=== PATIENT | female | born 1950 | race Caucasian/White ===

== ENCOUNTER 2018-01-24 18:43 | Observation (INO) | payer MEDICARE, OTHER, SELFPAY ==
[2018-01-24] VITALS (10 sets, daily range): BP systolic 111–152; BP diastolic 57–85; PULSE 66–87; RESP 12–19; TEMP 36.4–36.7; O2SAT 96–100; BMI 25.7
--- NOTE | 2018-01-24 18:57 | EKG12_ITS ---
Test Reason : REPEAT Blood Pressure : / mmHG Vent. Rate : 073 BPM Atrial Rate : 073 BPM P-R Int : 180 ms QRS Dur : 084 ms QT Int : 388 ms P-R-T Axes : 062 -14 025 degrees QTc Int : 427 ms Normal sinus rhythm Normal ECG Confirmed by CHIP CRAWFORD MD ([id number]), editor index PETER DURÁN ([id number] on 01/28/2018 1:24:45 PM Referred By: JER Confirmed By:CHIP CRAWFORD MD
--- NOTE | 2018-01-24 19:00 | RAD_ITS ---
STUDY: X-RAY CHEST REASON FOR EXAM: Female, 67 years old. Chest pain TECHNIQUE: Single AP portable view of the chest. COMPARISON: None. FINDINGS: administrative professional leads are present. There is a focus of infiltrate or atelectasis of the medial right lower lobe. Several small calcified granulomas of the right lung base.. There is no demonstrated pleural abnormality. Normal size heart. Normal mediastinum and talia. Normal visualized pulmonary arteries. Normal visualized aortic arch and descending thoracic aorta. Normal visualized thoracic spine. Normal visualized ribs, clavicles, and shoulders. There is no demonstrated abnormality of the visualized soft tissue structures of the upper abdomen. RAD/Chest 1 View (Portable) IMPRESSION: Focus of atelectasis and/or infiltrate of the medial right lower lobe. There are several small calcified granulomas of the right lung base. Electronically Signed: Tarun Jiang MD at 19:19 EDT , Service support ,
[2018-01-24] MEDS: Aspirin 81 MG TAB.CHEW 162 MG PO (19:07)
[2018-01-24] MEDS: 0.9% Normal Saline 1,000 ML 150 ML IV (19:08)
[2018-01-24 19:22] LABS: Absolute Lymphocyte Count 3.54 X10^3/ul (0.83-4.51); Absolute Neutrophil Count 3.8 X10^3/uL (2.0-7.7); Basophil# 0.02 X10^3/uL; Basophil% 0.2 % (0-1); Eosinophil# 0.21 X10^3/uL; Eosinophils% 2.6 % (0-5); Hematocrit 44.8 % (37-47); Hemoglobin 15.3 g/dl (12.0-15.0); Lymphocyte # 3.54 X10^3/ul (4.0); Lymphocyte % 43.4 % (19-41); Mean Corp Hgb Conc 34.2 g/gl (32-36); Mean Corpuscular Volume 93.7 fL (81-99); Mean Platelet Vol. 9.3 fl (6.2-12.0); Monocyte# 0.55 X10^3/uL; Monocyte% 6.7 % (0-10); Neutrophil # 3.82 X10^3/uL (2.7-7.7); Neutrophil % 46.9 % (47-70); Platelet Count 248 K/mm3 (150-450); RBC Distribution Width CV 12.7 % (11.6-14.6); RBC Distribution Width SD 42.6 fl (35.1-43.9); Red Blood Count 4.78 M/mm3 (4.2-5.4); White Blood Count 8.2 K/mm3 (4.4-11.0)
[2018-01-24 19:24] LABS: POSITIVE COUNT NO; POSITIVE DIFFERENTIAL NO; POSITIVE MORPHOLOGY NO
[2018-01-24 19:25] LABS: Anion Gap 8 (5-15); BUN 21 mg/dL (7-18); BUN/Creat Ratio 24.5 RATIO (10-20); Calcium,Total 9.2 mg/dL (8.5-10.1); Chloride 105 mmol/L (98-107); Creatinine, Serum 0.86 mg/dL (0.55-1.02); EST Glomerular Filtration Rate 71 mL/min (>60); Est Glom Filt Rate - Afr Amer 85 mL/min (>60); Estimated Creatinine Clearance 53.95 ml/min; Glucose 110 mg/dL (74-106); Potassium 3.6 mmol/L (3.5-5.1); Sodium Level 142 mmol/L (136-145)
--- NOTE | 2018-01-24 19:30 | EKG12_ITS ---
Test Reason : CP Blood Pressure : / mmHG Vent. Rate : 087 BPM Atrial Rate : 087 BPM P-R Int : 168 ms QRS Dur : 082 ms QT Int : 372 ms P-R-T Axes : 063 -05 034 degrees QTc Int : 447 ms Normal sinus rhythm Normal ECG Confirmed by CHIP CRAWFORD MD ([id number]), assistant film editor PETER DURÁN ([id number]) on 01/28/2018 1:24:58 PM Referred By: TERRANCE
--- NOTE | 2018-01-24 19:40 | ED.DCSUM_ITS ---
- ER Visit Summary Date of Service: 01/24/18 Chief Complaint: [Chest pain] History of Present Illness: The patient is a 67 F [presents with chest discomfort that started about 45 minutes prior to coming in. Patient describes a burning sensation in the center of her chest that radiated into both jaws and into her ears. Patient states she has had similar pain in the past that resolved on its own. Patient thought it was related to indigestion so she had taken Tums multiple times. Patient's pain seems to be mostly resolved in her chest currently just has minimal discomfort in her ears. Patient denies any shortness of breath or diaphoresis. Patient denies any nausea or vomiting. Patient does have a family history of heart disease with both her mother and father having heart attacks in their 70s and 80s. Patient is never had a stress test.] Patient denies recent travel or surgery. Physical Examination: [HEENT-PERRLA, EOMI. Cranial nerves II through XII grossly intact. TMs clear. Mucous membranes moist. No adenopathy. Cardiovascular-regular rate and rhythm without murmur or ectopy Lungs-clear to auscultation, chest wall stable without crepitus or subcu emphysema Abdomen-normoactive bowel sounds, soft, nontender, no rebound or rigidity, no peritoneal signs. Extremities-intact ?4, normal range of motion, normal pulses, atraumatic] Test Results: [EKG obtained on arrival shows sinus rhythm with a ventricular rate of 87 bpm with no acute ST segment changes. CBC with differential was normal. Chemistries were normal. Troponin was less than 0.02. Chest x-ray showed questionable medial right lower lobe atelectasis versus infiltrate otherwise nothing acute. Patient was noted to have some granulomas in the right lung.] Emergency Department Course and Treatment: [Patient's pain was mostly resolved in the department therefore she did receive aspirin. Admit for further workup and evaluation of her chest pain] Treatment Plan: [Admit] Disposition: [Admit] Impression: [Chest Pain-rule out acute coronary syndrome] This note was generated with [employer] dictation software. It may contain incorrect words, spelling, and punctuation that were not noted in review of the chart prior to signing ED Disposition - Plan for ED Patient: Chief Complaint: Chest Pain Referrals: Reyes Hsieh Chi, MD [Primary Care Provider] -
--- NOTE | 2018-01-24 20:39 | HP.PCM_ITS ---
Problem List (1) Chest pain Status: Acute (2) Nephrolithiasis Status: Chronic (3) GERD (gastroesophageal reflux disease) Status: Chronic History of Present Illness Date of Admission: 01/24/18 Chief Complaint: Chest pain The patient is a 67 year old F with a past medical history of intermittent GERD , nephrolithiasis and fibroids (status post ZEUS/BSO) who presented to the emergency room at [facility] complaining of substernal chest pain that radiated to her ears bilaterally. She had finished supper about an hour before the pain started. The pain started at rest. She had a similar episode a few years ago but the pain resolved on the way to the emergency room so she did not follow through. She has never had a stress test or cardiac catheterization. She has no history of heart disease and denies a history of hypertension, diabetes mellitus, hyperlipidemia or smoking history. There is a family history of cardiovascular disease in both her parents had myocardial infarctions. She denied any diaphoresis, nausea, shortness of breath, palpitations with the pain. The pain lasted approximately 45 minutes and by the time she arrived at the emergency room was minimal. EKG showed normal sinus rhythm with no significant ST or T-wave changes. Chest x-ray showed no pleural effusions, pulmonary vascular congestion or infiltrates. Troponin was less than 0.02. BUN was increased at 21 and the creatinine was 0.86. He took 8 Tums at home with no significant relief of chest pain. She tells me when she has GERD the pain goes away in approximately 10 minutes with Tums. She is being admitted to a monitored bed on PCU for serial cardiac enzymes and if these are negative stress test in the a.m. Past Medical History Past Medical History (Chronic Problems): Chronic Problems Nephrolithiasis (Chronic) GERD (gastroesophageal reflux disease) (Chronic) Allergies diphenhydramine HCl [From Benadryl] Allergy (Verified 01/24/18 18:47) Rash Home Medications: Ambulatory Orders Medication Instructions Recorded Aspirin [Aspirin, Baby] 162 mg PO DAILY@0800 02/05/14 Multivitamins,Therapeutic 1 tablet PO DAILY 02/05/14 [Multivitamin] [place]-3 Fatty Acids [Fish Oil] 500 mg PO DAILY 01/24/18 Vitamin E 1,000 unit PO DAILY 01/24/18 Surgical History: appendectomy - Incidental appendectomy at the time of hysterectomy., hysterectomy - ZEUS/BSO for uterine fibroids, - - 2 sections 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 Paternal History Items: Heart Disease, Stroke Review of Systems Constitutional: Denies: Chills, Fever, Weight Change Eyes: Denies: Blurred vision, Vision Change HEENT: Denies: Head Aches, Sinus Congestion, Sinus Drainage Cardiovascular: Reports: Chest Pain. Denies: Claudication, Edema, Light Headedness, Orthopnea, Palpitations, Paroxysmal Noc. Dyspnea Respiratory: Reports: Shortness of Breath - Only with the chest pain. Denies: Cough Gastrointestinal: Denies: Abdominal Pain, Diarrhea, Nausea, Vomiting Genitourinary: Denies: Dysuria Gynecological: Denies: Breast symptoms, Vaginal discharge Musculoskeletal: Denies: Arm Pain Skin: Denies: Jaundice, Rash, Wounds Neurological: Denies: Numbness, Tingling, Focal weakness Psychiatric: Denies: Anxiety, Depression, Homicidal Ideations, Suicidal Ideations Endocrine: Denies: Change in Body Habitus, Hx of Thyroiditis Hematologic/ Lymphatic: Denies: Hx of blood clot VTE Information - Inpt Only VTE Present on Admission: No VTE Mechan Device Prophylaxis: None VTE Pharm Prophylaxis ordered?: No Reason prophylaxis not ordered:: Treatment Not Indicated - Patient will likely have a short admission, less than 24 hours, unless stress test is positive tomorrow and will start DVT prophylaxis if she is going to stay in the hospital at that time. Patient Problems: Active and Suspected Problems Chest pain (Acute) - Physical Exam General: Alert, Oriented x3, Cooperative HEENT: Atraumatic, PERRLA, EOMI, Normocephalic Oral: Dry Mucosa Neck: Supple, No JVD, Negative Carotid Bruits, No Nodes, No Nuchal Rigidity, Trachea Midline Lungs: Clear to auscultation, Normal air movement Cardiovascular: Regular rate, Regular Rhythm, Normal S1, Normal S2, No murmurs, No Ectopic Activity, No rub noted, No Gallop Abdomen: Bowel Sounds Present, Soft, Non Tender, Non-Distended, No Hepato- splenomegaly, - - No guarding with palpation Extremities: No clubbing, No cyanosis, No edema, No Calf Tenderness - Negative Homans and Jesse signs, Peripheral Pulses Normal Skin: No rashes, No breakdown Musculoskeletal: No Muscle Wasting Neurological: Cranial nerves II-XII grossly intact, Neuro grossly intact Psych/Mental Status: Normal Affect, Appropriate Vital Signs Temp Pulse Resp BP Pulse Ox 97.6 F L 80 17 111/57 L 96 01/24/18 19:50 01/24/18 20:18 01/24/18 20:18 01/24/18 20:18 01/24/18 20:18 Oxygen Flow Rate (L/min) 2 Oxygen Delivery Method Nasal Cannula Weight: 145 lb 4.554 oz Body Mass Index (BMI) 25.7 Laboratory Tests Past 24 Hrs 01/24/18 01/24/18 18:55 18:55 WBC 8.2 RBC 4.78 Hgb 15.3 H Hct 44.8 MCV 93.7 MCH 32.0 MCHC 34.2 RDW 12.7 RDW Differential 42.6 Plt Count 248 MPV 9.3 Immature Gran % (Auto) 0.200 Neut % (Auto) 46.9 L Lymph % (Auto) 43.4 H [place] % (Auto) 6.7 Eos % (Auto) 2.6 Baso % (Auto) 0.2 Absolute Neuts (auto) 3.8 Absolute Lymphs (auto) 3.54 Total Counted Not Reportable Sodium 142 Potassium 3.6 Chloride 105 Carbon Dioxide 29.0 Anion Gap 8 BUN 21 H Creatinine 0.86 Estim Creat Clear Calc 53.95 Est GFR (MDRD) Af Amer 85 Est GFR (MDRD) Non-Af 71 BUN/Creatinine Ratio 24.5 H Glucose 110 H Calcium 9.2 Troponin I < 0.02 Assessment/Plan Active and Suspected Problems Chest pain (Acute) Impressions 1. Chest pain-patient is a lifelong non-smoker, has no diabetes mellitus, hypertension or hyperlipidemia, does have a significant family history of cardiovascular disease in both her parents and neither 1 of them smoked. EKG without chest pain is normal. Chest x-ray was unremarkable. She is being admitted to a monitored bed on PCU for serial cardiac enzymes. If the cardiac enzymes are negative will proceed with treadmill nuclear stress test in the a.m. 2. GERD - not often now....usually relieved with TUMS within 10-15 minutes 3. Hx of ZEUS/BSO for fibroids 4. Family history of CVD in both parents 5. + FH of breast CA in her mother - encouraged her to get Up to date on MMG's and get a DEXA scan since she had a total hyster prior to menopause Code Visit OBSV E&M: 64679 Initial observation care L3
[2018-01-24 21:41] LABS: AST(SGOT) 55 U/L (15-37); Alanine Aminotransfer ALT/SGPT 78 U/L (13-56); Albumin, Serum 3.9 g/dL (3.2-5.0); Alkaline Phosphatase 142 U/L (45-117); Bilirubin, Direct 0.08 mg/dL (0.00-0.30); Globulin 3.8 g/dL (2.2-4.2); Protein, Total 7.7 g/dL (6.4-8.2)
[2018-01-24] MEDS: Famotidine 20 MG Tablet PO (21:49)
[2018-01-25 03:04] VITALS: PULSE 65
[2018-01-25 03:08] VITALS: BP 107/58; PULSE 64; RESP 16; TEMP 37.1; O2SAT 96
[2018-01-25 03:47] LABS: Hematocrit 39.1 % (37-47); Hemoglobin 13.1 g/dl (12.0-15.0); Mean Corp Hgb Conc 33.5 g/gl (32-36); Mean Corpuscular Hgb 31.6 pg (27.0-32.0); Mean Corpuscular Volume 94.4 fL (81-99); Mean Platelet Vol. 9.3 fl (6.2-12.0); Platelet Count 207 K/mm3 (150-450); RBC Distribution Width CV 12.7 % (11.6-14.6); RBC Distribution Width SD 42.9 fl (35.1-43.9); Red Blood Count 4.14 M/mm3 (4.2-5.4); White Blood Count 6.6 K/mm3 (4.4-11.0)
[2018-01-25 03:48] LABS: Scan Indicated on CBC? Y/N NO
[2018-01-25 03:53] LABS: International Normalized Ratio 0.9; Prothrombin Time (Protime)PT. 12.3 SECONDS (11.7-14.9)
[2018-01-25 04:02] LABS: Anion Gap 6 (5-15); BUN 19 mg/dL (7-18); Calcium,Total 8.8 mg/dL (8.5-10.1); Chloride 110 mmol/L (98-107); Cholesterol 159 mg/dL (200); Creatinine, Serum 0.51 mg/dL (0.55-1.02); EST Glomerular Filtration Rate 127 mL/min (>60); Est Glom Filt Rate - Afr Amer 154 mL/min (>60); Estimated Creatinine Clearance 90.97 ml/min; Glucose 97 mg/dL (74-106); High Density Lipoprotein 42 mg/dL; Potassium 3.9 mmol/L (3.5-5.1); Sodium Level 143 mmol/L (136-145); Triglycerides 168 mg/dL; Very Low Density Lipoprotein 34 mg/dL (5-40)
--- NOTE | 2018-01-25 05:55 | EKG12_ITS ---
Test Reason : MORNING EKG Blood Pressure : / mmHG Vent. Rate : 067 BPM Atrial Rate : 067 BPM P-R Int : 176 ms QRS Dur : 086 ms QT Int : 414 ms P-R-T Axes : 060 -08 002 degrees QTc Int : 437 ms Normal sinus rhythm Normal ECG When compared with ECG of 24-JAN-2018 19:43, MANUAL COMPARISON REQUIRED, DATA IS UNCONFIRMED Confirmed by YVETTE WATKINS, CHIP ([id number]), index editor PETER DURÁN ([id number]) on 01/28/2018 1:55:05 PM Referred By: TUNDE Confirmed By:CHIP CRAWFORD MD
[2018-01-25] MEDS: Aspirin 81 MG TAB.CHEW 162 MG PO (06:03)
[2018-01-25 07:15] VITALS: PULSE 80
--- NOTE | 2018-01-25 09:25 | STRESSREP ---
Stress Test Report Exercise myocardial perfusion stress test. 67-year-old lady with a history of chest pain. Stress protocol: Resting EKG demonstrates normal sinus rhythm with a rate of 71 bpm normal intervals and noted resting blood pressure is 116/80 mmHg. The patient exercised according to the regular Mhoan protocol for a total duration of 4 minutes and 30 seconds. The maximum heart rate attained was 176 bpm which was 113% of the maximum predicted heart rate. The maximum workload attained was 6.3 metastases. At rest there were no ST or T-wave changes noted suggest ischemia at peak exercise upsloping ST changes only were noted with no meet the criteria for ischemia. The resting blood pressure is 116/80 with a peak blood pressure 150/40 mmHg. The patient was terminated due to shortness of breath and fatigue no chest pain was noted. Myocardial perfusion protocol. 11.1 mCi of technetium 99M sestamibi was injected at rest. The patient exercised according to the regular Mohan protocol for total duration of 4 minutes and 30 seconds attaining 113% of maximum predicted heart rate the maximum workload was 6.3 metabolic equivalents. At peak exercise 32.9 mCi of technetium 99m sestamibi was injected stress images were obtained stress and rest images were reconstructed and compared in the short axis vertical long and horizontal long axis. Gated images were also obtained. Perfusion SPECT analysis: Review of the stress images demonstrate normal uptake of tracer noted in all areas of the myocardium. The resting images similarly demonstrate normal uptake of tracer noted in all areas of the myocardium. No areas of reversibility are noted to suggest ischemia and no previous infarct is noted. Gated SPECT analysis. The gated ejection fraction is noted to be 79%. Conclusion: Normal exercise myocardial perfusion stress test at a moderate workload. Preserved ejection fraction. Moderate functional aerobic impairment.
[2018-01-25 09:50] VITALS: BP 116/75; PULSE 75; RESP 18; TEMP 36.4; O2SAT 97
[2018-01-25] MEDS: Vitamin E 400 UNITS Capsule 800 UNITS PO (10:03)
[2018-01-25] MEDS: Multivitamins,Therapeutic Tablet 1 TABLET PO (10:03)
[2018-01-25] MEDS: Famotidine 20 MG Tablet PO (10:03)
[2018-01-25 11:03] VITALS: PULSE 76
--- NOTE | 2018-01-25 12:45 | DCINST_ITS ---
- Discharge Diagnoses Current Active Problems: Current Active and Chronic Problems Chest pain (Acute) Nephrolithiasis (Chronic) GERD (gastroesophageal reflux disease) (Chronic) Reason(s) for Visit for Discharge Instructions: Chest pain You will use the following diet at home:: No restrictions Allergies/Adverse Reactions: Allergies diphenhydramine HCl [From Benadryl] Allergy (Verified 01/24/18 18:47) Rash Medications to take at Discharge Aspirin [Aspirin, Baby] 162 mg PO DAILY@0800 02/05/14 Multivitamins,Therapeutic [Multivitamin] 1 tablet PO DAILY 02/05/14 [place]-3 Fatty Acids [Fish Oil] 1,200 mg PO DAILY 01/24/18 Vitamin E 400 unit PO DAILY 01/24/18 Omeprazole 40 mg PO DAILY #30 capsule. 01/25/18 The following prescriptions were given: Omeprazole 40 mg PO DAILY #30 capsule. Primary Care Physician: Reyes Hsieh Chi, MD [Primary Care Provider] - Please follow up with your Primary Care Physician in: in 5 to 7 days.
--- NOTE | 2018-01-25 12:45 | PCM.DC.SUM ---
Discharge Date and Diagnosis - Problem List Patient Problems: Active and Suspected Problems Chest pain (Acute) Date of Admission: 01/24/18 Date of Discharge: 01/25/18 - Primary Discharge Diagnosis Active and Suspected Problems Chest pain (Acute) - Secondary Discharge Diagnosis Chronic Problems Nephrolithiasis (Chronic) GERD (gastroesophageal reflux disease) (Chronic) Hospital Course and Treatment Imaging Results: 01/25/18 05:55 Nuclear Stress Test - Treadmil [NM] AM (NON MEDS) Diagnostic Data Chest X-Ray 01/24/18 19:00 IMPRESSION: Focus of atelectasis and/or infiltrate of the medial right lower lobe. There are several small calcified granulomas of the right lung base. Electronically Signed: Tarun Jiang MD at 19:19 EDT , Service support , SPECIAL DELIVERY MESSENGER: none. Operations: None Procedures: Stress test Summary of Care Provided: The patient is a 67 year old F with a past medical history of intermittent GERD, nephrolithiasis and fibroids (status post ZEUS/BSO) who presented to the emergency room at [facility] complaining of substernal chest pain that radiated to her ears bilaterally. She had finished supper about an hour before the pain started. The pain started at rest. She had a similar episode a few years ago but the pain resolved on the way to the emergency room so she did not follow through. She has never had a stress test or cardiac catheterization. She has no history of heart disease and denies a history of hypertension, diabetes mellitus, hyperlipidemia or smoking history. There is a family history of cardiovascular disease in both her parents had myocardial infarctions. She denied any diaphoresis, nausea, shortness of breath, palpitations with the pain. The pain lasted approximately 45 minutes and by the time she arrived at the emergency room was minimal. EKG showed normal sinus rhythm with no significant ST or T-wave changes. Chest x-ray showed no pleural effusions, pulmonary vascular congestion or infiltrates. Troponin was less than 0.02. BUN was increased at 21 and the creatinine was 0.86. He took 8 Tums at home with no significant relief of chest pain. She tells me when she has GERD the pain goes away in approximately 10 minutes with Tums. She is being admitted to a monitored bed on PCU for serial cardiac enzymes and if these are negative stress test in the a.m. Patient remained chest pain free during the hospital stay. Serial troponin were negative, underwent stress nuclear scan, which was negative for ischemia. Plan to discharge to home. Add omeprazole 40 mg po qd x 1 month. Follow up with PCP. Discharge Diet: No Restrictions Discharge Activity: Return to Normal Activity Home Medications: Medications to take at Discharge Aspirin [Aspirin, Baby] 162 mg PO DAILY@0800 02/05/14 Multivitamins,Therapeutic [Multivitamin] 1 tablet PO DAILY 02/05/14 [place]-3 Fatty Acids [Fish Oil] 1,200 mg PO DAILY 01/24/18 Vitamin E 400 unit PO DAILY 01/24/18 Omeprazole 40 mg PO DAILY #30 capsule. 01/25/18 Following Prescrptions Were Given to Patient: Omeprazole 40 mg PO DAILY #30 capsule. Primary Care Physician: Reyes Hsieh Chi, MD [Primary Care Provider] - Please follow up with your Primary Care Physician in: in 5 to 7 days. Disposition: Home Patient Condition:: Good Medical Necessity - Tobacco Use Smoking Status: Never smoker Tobacco Use: Non-smoker Meaningful Use Info Meaningful Use Diagnoses (Choose all that apply): None applicable Code Visit OBSV E&M: 45636 Observation care discharge
--- NOTE | 2018-01-25 12:48 | DS.PCM_ITS ---
Discharge Date and Diagnosis - Problem List Patient Problems: Active and Suspected Problems Chest pain (Acute) Date of Admission: 01/24/18 Date of Discharge: 01/25/18 - Primary Discharge Diagnosis Active and Suspected Problems Chest pain (Acute) - Secondary Discharge Diagnosis Chronic Problems Nephrolithiasis (Chronic) GERD (gastroesophageal reflux disease) (Chronic) Hospital Course and Treatment Imaging Results: 01/25/18 05:55 Nuclear Stress Test - Treadmil [NM] AM (NON MEDS) Diagnostic Data Chest X-Ray 01/24/18 19:00 IMPRESSION: Focus of atelectasis and/or infiltrate of the medial right lower lobe. There are several small calcified granulomas of the right lung base. Electronically Signed: Tarun Jiang MD at 19:19 EDT , Service support , LOCK ASSEMBLER: none. Operations: None Procedures: Stress test Summary of Care Provided: The patient is a 67 year old F with a past medical history of intermittent GERD , nephrolithiasis and fibroids (status post ZEUS/BSO) who presented to the emergency room at [facility] complaining of substernal chest pain that radiated to her ears bilaterally. She had finished supper about an hour before the pain started. The pain started at rest. She had a similar episode a few years ago but the pain resolved on the way to the emergency room so she did not follow through. She has never had a stress test or cardiac catheterization. She has no history of heart disease and denies a history of hypertension, diabetes mellitus, hyperlipidemia or smoking history. There is a family history of cardiovascular disease in both her parents had myocardial infarctions. She denied any diaphoresis, nausea, shortness of breath, palpitations with the pain. The pain lasted approximately 45 minutes and by the time she arrived at the emergency room was minimal. EKG showed normal sinus rhythm with no significant ST or T-wave changes. Chest x-ray showed no pleural effusions, pulmonary vascular congestion or infiltrates. Troponin was less than 0.02. BUN was increased at 21 and the creatinine was 0.86. He took 8 Tums at home with no significant relief of chest pain. She tells me when she has GERD the pain goes away in approximately 10 minutes with Tums. She is being admitted to a monitored bed on PCU for serial cardiac enzymes and if these are negative stress test in the a.m. Patient remained chest pain free during the hospital stay. Serial troponin were negative, underwent stress nuclear scan, which was negative for ischemia. Plan to discharge to home. Add omeprazole 40 mg po qd x 1 month. Follow up with PCP. Discharge Diet: No Restrictions Discharge Activity: Return to Normal Activity Home Medications: Medications to take at Discharge Aspirin [Aspirin, Baby] 162 mg PO DAILY@0800 02/05/14 Multivitamins,Therapeutic [Multivitamin] 1 tablet PO DAILY 02/05/14 [place]-3 Fatty Acids [Fish Oil] 1,200 mg PO DAILY 01/24/18 Vitamin E 400 unit PO DAILY 01/24/18 Omeprazole 40 mg PO DAILY #30 capsule. 01/25/18 Following Prescrptions Were Given to Patient: Omeprazole 40 mg PO DAILY #30 capsule. Primary Care Physician: Reyes Hsieh Chi, MD [Primary Care Provider] - Please follow up with your Primary Care Physician in: in 5 to 7 days. Disposition: Home Patient Condition:: Good Medical Necessity - Tobacco Use Smoking Status: Never smoker Tobacco Use: Non-smoker Meaningful Use Info Meaningful Use Diagnoses (Choose all that apply): None applicable Code Visit OBSV E&M: 20134 Observation care discharge
[2018-01-25 13:33] VITALS: O2SAT 91
== END 2018-01-25 12:44 | disposition home or self-care (01) ==
LOC: ED 19:30 → PCU 20:29
PROVIDERS: Admitting Provider Internal Medicine; Emergency Provider Emergency Medicine; Family Provider Family Medicine Geriatric Medicine; PCP Family Medicine Geriatric Medicine; Visit Provider Hospitalist
DX: R07.89 Other chest pain (principal); K21.9 Gastro-esophageal reflux disease without esophagitis; Z87.442 Personal history of urinary calculi; Z82.49 Family history of ischemic heart disease and other diseases of the circulatory system; Z79.82 Long term (current) use of aspirin
CPT/HCPCS: 36415; 71045; 78452; 80048; 80061; 80076; 83735; 84484; 85025; 85027; 85610; 85730; 93005; 93017; 96360; 96361; 99218; 99285; A9500; J7030; A4216; G0378

== ENCOUNTER → 2018-04-24 11:43 | Outpatient (CLI) | payer MEDICARE, OTHER, SELFPAY ==
--- NOTE | 2018-04-24 11:45 | CDU_ITS ---
Reason For Study: Carotid stenosis Rt. Velocities/BP Lt. Velocities/BP Prox CCA 95.6/22.9 cm/sec. Prox CCA 84.4/24.6 cm/sec. Mid CCA 81.5/19.9 cm/sec. Mid CCA 79.2/23.5 cm/sec. Dist CCA 98.5/25.2 cm/sec. Dist CCA 80.9/27.6 cm/sec. Prox ICA 67.4/22.3 cm/sec. Prox ICA 66.8/26.4 cm/sec. Mid ICA 136.0/53.0 cm/sec. Mid ICA 109.0/45.7 cm/sec. Dist ICA 89.8/36.4 cm/sec. Dist ICA 108.0/45.7 cm/sec. Rt. ICA/CCA = 1.5. Lt. ICA/CCA = 1.4. Prox ECA 82.1/12.3 cm/sec. Prox ECA 82.7/14.7 cm/sec. Rt. Vert. 53.4/15.8 cm/sec. Lt. Vert. 69.2/21.7 cm/sec. Right Extracranial There is intimal thickening but no significant atherosclerotic plaque noted in the right common carotid artery. There is intimal thickening but no significant atherosclerotic plaque noted in the right internal carotid artery. There is no significant atherosclerotic plaque noted in the right external carotid artery. Antegrade flow is noted in the right vertebral artery. Left Extracranial There is intimal thickening but no significant atherosclerotic plaque noted in the left common carotid artery. There is intimal thickening but no significant atherosclerotic plaque noted in the left internal carotid artery. There is intimal thickening but no significant atherosclerotic plaque noted in the left external carotid artery. Antegrade flow is noted in the left vertebral artery. Procedure Carotid Duplex [id number]. Exam performed in department. Interpretation Summary Intimal thickening of the right internal carotid with 50-69% stenosis, likely closer to the lower limits of this range. Intimal thickening with <50% stenosis left internal carotid. Normal flow bilateral external carotids Patent and antegrade bilateral vertebrals. Ordering Physician: Dayanna Vásquez Referring Physician: Dayanna Vásquez Performed By: Christine Benavidez RVT
== END ==
PROVIDERS: Family Provider Internal Medicine; PCP Internal Medicine; Visit Provider Internal Medicine
DX: I65.23 Occlusion and stenosis of bilateral carotid arteries (principal)
CPT/HCPCS: 93880

== ENCOUNTER → 2018-05-16 14:15 | Outpatient (CLI) | payer MEDICARE, OTHER, SELFPAY ==
--- NOTE | 2018-05-16 14:18 | BI_ITS ---
MAMMOGRAPHY - BILATERAL SCREENING REASON FOR EXAM: Female, 68 years old. Routine annual screening examination. PERTINENT HISTORY: Mother with breast cancer. Aunt with breast cancer. TECHNIQUE: Digital bilateral breast hugh (3D mammographic acquisition) in the CC and MLO projections. 2-D mediolateral oblique (MLO) and craniocaudad (CC) views of both breasts were obtained. CAD: Full Field Digital Mammography with Computer Added Detection was performed. COMPARISON: Comparison is made with prior examination dated July 11, 2012. FINDINGS: Breast Composition: The breasts are heterogeneously dense, which may obscure small masses. There are no dominant masses or suspicious calcifications. Stable benign-appearing bilateral axillary lymph nodes. Stable calcified nodules in both breasts. No other significant abnormalities are identified. There has been no significant change since the prior study. BI/SCREENING MAMM (CAD), BILAT IMPRESSION: Stable bilateral screening mammogram. Yearly follow-up mammogram recommended. (A) ASSESSMENT CATEGORY: BIRADS Category 2: Benign. A letter regarding these results will be sent to the patient by the facility within 30 days. Approximately 10% of breast cancers are not detected by mammography. A normal mammogram should not delay biopsy of a clinically suspicious abnormality. [id number] Electronically Signed: Marco Bright MD at 15:23 EDT Tel [phone], Service support ,
--- NOTE | 2018-05-16 14:24 | BD_ITS ---
STUDY: DUAL ENERGY X-RAY ABSORPTIOMETRY / DXA REASON FOR EXAM: Female, 68 years old. The patient is postmenopausal. Loss of height. TECHNIQUE: Bone Mineral Density (BMD) measurements of lumbar spine and bilateral hips were obtained. COMPARISON: None. FINDINGS: Lumbar Spine (L1-L4): g/cm2 (1.030) / T-score (-1.2) / Z-score (0.4) Findings are suggestive of osteopenia with a moderate fracture risk. Left Femur Total: g/cm2 (0.870) / T-score (-1.1) / Z-score (0.2) Left Femoral Neck: g/cm2 (0.788) / T-score (-1.8) / Z-score (-0.3) Right Femur Total: g/cm2 (0.925) / T-score (-0.7) / Z-score (0.6) Right Femoral Neck: g/cm2 (0.820) / T-score (-1.6) / Z-score (-0.1) BD/Dexa Bone Density Study IMPRESSION: The patient is considered osteopenic as outlined below according to World Wes Organization (WHO) criteria with a moderate fracture risk. Reference Information: The T-score is the number of standard deviations above or below the standard which is normal for young adults at their peak bone mineral density. The World Health Organization (WHO) interprets the T-scores as follows: Above -1 Normal bone density Between -1 and -2.5 Osteopenia Equal to / or below -2.5 Osteoporosis As a practical clinical guideline, osteopenia may be graded as follows: Mild -1 through -1.5 Moderate -1.6 through -2.0 Severe -2.1 through -2.4 The Z-score is the number of standard deviations above or below age-matched controls. A Z-score of less than -1.5 would be considered abnormal. References: 1. NIH Osteoporosis and Related Bone Diseases http://www.osteo.org 2. International Society for Clinical Densitometry http://www.iscd.org 3. National Osteoporosis Foundation http://www.nof.org Electronically Signed: Marco Bright MD at 15:12 EDT Tel [phone], Service support ,
== END ==
PROVIDERS: Family Provider Family Medicine Geriatric Medicine; PCP Internal Medicine; Visit Provider Internal Medicine
DX: Z12.31 Encounter for screening mammogram for malignant neoplasm of breast (principal); Z78.0 Asymptomatic menopausal state
CPT/HCPCS: 77063; 77067; 77080

== ENCOUNTER → 2019-05-26 12:54 | Outpatient (CLI) | payer MEDICARE, OTHER, SELFPAY ==
--- NOTE | 2019-05-26 12:59 | BI_ITS ---
MAMMOGRAPHY - BILATERAL SCREENING REASON FOR EXAM: Female, 69 years old. Routine annual screening examination. PERTINENT HISTORY: Mother with breast cancer. Aunt with breast cancer. TECHNIQUE: Digital bilateral breast corrie (3D mammographic acquisition) in the CC and MLO projections. 2-D mediolateral oblique (MLO) and craniocaudad (CC) views of both breasts were obtained. CAD: Full Field Digital Mammography with Computer Added Detection was performed. COMPARISON: Comparison is made with prior study dated May 16, 2018 and July 11, 2012. FINDINGS: Breast Composition: The breasts are heterogeneously dense, which may obscure small masses. There are no dominant masses or suspicious calcifications. Stable benign-appearing bilateral axillary lymph nodes. No other significant abnormalities are identified. There has been no significant change since the prior study. BI/SCREEN MAMM (CAD) W/CORRIE BILAT IMPRESSION: Stable bilateral screening mammogram. Yearly follow-up mammogram recommended. (A) ASSESSMENT CATEGORY: BIRADS Category 2: Benign. A letter regarding these results will be sent to the patient by the facility within 30 days. Approximately 10% of breast cancers are not detected by mammography. A normal mammogram should not delay biopsy of a clinically suspicious abnormality. [id number] Electronically Signed: Marco Bright, at 14:19 EDT , Service support ,
== END ==
PROVIDERS: Family Provider Internal Medicine; PCP Internal Medicine; Visit Provider Internal Medicine
DX: Z12.31 Encounter for screening mammogram for malignant neoplasm of breast (principal)
CPT/HCPCS: 77063; 77067

== ENCOUNTER → 2019-06-05 09:06 | Outpatient (CLI) | payer MEDICARE, OTHER, SELFPAY ==
[2019-06-02 14:45] VITALS: BMI 23.3
[2019-06-05 12:19] LABS: Absolute Lymphocyte Count 2.53 X10^3/uL (0.83-4.51); Absolute Neutrophil Count 3.6 X10^3/uL (2.0-7.7); Basophil# 0.01 X10^3/uL; Basophil% 0.1 % (0-1); Eosinophil# 0.13 X10^3/uL; Eosinophils% 1.9 % (0-5); Hematocrit 44.7 % (37-47); Hemoglobin 14.8 g/dL (12.0-15.0); Lymphocyte # 2.53 X10^3/ul (4.0); Lymphocyte % 37.9 % (19-41); Mean Corp Hgb Conc 33.1 g/dL (32-36); Mean Corpuscular Hgb 32.3 pg (27.0-32.0); Mean Corpuscular Volume 97.6 fL (81-99); Mean Platelet Vol. 9.5 fl (6.2-12.0); NRBC Flagged by Analyzer 0 % (0-5); Neutrophil # 3.59 X10^3/uL (2.7-7.7); Neutrophil % 53.8 % (47-70); Platelet Count 209 K/mm3 (150-450); RBC Distribution Width CV 12.8 % (11.6-14.6); RBC Distribution Width SD 45.9 fl (35.1-43.9); Red Blood Count 4.58 M/mm3 (4.2-5.4); White Blood Count 6.7 K/mm3 (4.4-11.0)
[2019-06-05 12:48] LABS: Anion Gap 4 (5-15); BUN 15 mg/dL (7-18); BUN/Creat Ratio 23.1 RATIO (10-20); Calcium,Total 9.2 mg/dL (8.5-10.1); Chloride 108 mmol/L (98-107); Cholesterol 187 mg/dL (200); Creatinine, Serum 0.65 mg/dL (0.55-1.02); EST Glomerular Filtration Rate 97 mL/min (>60); Est Glom Filt Rate - Afr Amer 117 mL/min (>60); Glucose 88 mg/dL (74-106); High Density Lipoprotein 58 mg/dL; Potassium 4.2 mmol/L (3.5-5.1); Sodium Level 141 mmol/L (136-145); Triglycerides 96 mg/dL; Very Low Density Lipoprotein 19 mg/dL (5-40)
== END ==
PROVIDERS: Family Provider Internal Medicine; PCP Internal Medicine; Visit Provider Internal Medicine
DX: Z00.00 Encounter for general adult medical examination without abnormal findings (principal); I65.29 Occlusion and stenosis of unspecified carotid artery
CPT/HCPCS: 36415; 80048; 80061; 85025

== ENCOUNTER → 2020-06-21 09:29 | Outpatient (CLI) | payer MEDICARE, OTHER, SELFPAY ==
[2019-06-02 14:45] VITALS: BMI 23.3
[2020-06-21 08:45] VITALS: BMI 23.3
--- NOTE | 2020-06-21 12:01 | BI_ITS ---
MAMMOGRAPHY - BILATERAL SCREENING REASON FOR EXAM: Female, 70 years old. Routine annual screening examination. PERTINENT HISTORY: Mother with breast cancer. Aunt with breast cancer TECHNIQUE: Digital bilateral breast corrie (3D mammographic acquisition) in the CC and MLO projections. 2-D mediolateral oblique (MLO) and craniocaudad (CC) views of both breasts were obtained. CAD: Full Field Digital Mammography with Computer Added Detection was performed. COMPARISON: Comparison is made with prior study dated 05/26/2019 and 05/16/2018. FINDINGS: Breast Composition: The breasts are heterogeneously dense, which may obscure small masses. There are no dominant masses or suspicious calcifications. Stable benign-appearing bilateral axillary nodes. No other significant abnormalities are identified. There has been no significant change since the prior study. BI/SCREEN MAMM (CAD) W/CORRIE BILAT IMPRESSION: Stable bilateral screening mammogram. Yearly follow-up mammogram recommended. (A) ASSESSMENT CATEGORY: BIRADS Category 2: Benign. A letter regarding these results will be sent to the patient by the facility within 30 days. Approximately 10% of breast cancers are not detected by mammography. A normal mammogram should not delay biopsy of a clinically suspicious abnormality. [id number] Electronically Signed: Marco Bright, at 13:00 EDT , Service support ,
[2020-06-21 12:16] LABS: Absolute Lymphocyte Count 2.22 X10^3/uL (0.83-4.51); Absolute Neutrophil Count 3.6 X10^3/uL (2.0-7.7); Basophil# 0.02 X10^3/uL; Basophil% 0.3 % (0-1); Eosinophil# 0.15 X10^3/uL; Eosinophils% 2.3 % (0-5); Hematocrit 44.5 % (37-47); Hemoglobin 14.7 g/dL (12.0-15.0); Lymphocyte # 2.22 X10^3/ul (4.0); Lymphocyte % 34.2 % (19-41); Mean Corpuscular Hgb 31.5 pg (27.0-32.0); Mean Corpuscular Volume 95.3 fL (81-99); Mean Platelet Vol. 10.1 fl (6.2-12.0); Monocyte# 0.47 X10^3/uL; Monocyte% 7.2 % (0-10); NRBC Flagged by Analyzer 0 % (0-5); Neutrophil # 3.63 X10^3/uL (2.7-7.7); Neutrophil % 55.8 % (47-70); Platelet Count 214 K/mm3 (150-450); RBC Distribution Width CV 12.8 % (11.6-14.6); RBC Distribution Width SD 44.6 fl (35.1-43.9); Red Blood Count 4.67 M/mm3 (4.2-5.4); White Blood Count 6.5 K/mm3 (4.4-11.0)
[2020-06-21 12:25] LABS: AST(SGOT) 31 U/L (15-37); Alanine Aminotransfer ALT/SGPT 35 U/L (13-56); Albumin, Serum 3.7 g/dL (3.2-5.0); Alkaline Phosphatase 90 U/L (45-117); Anion Gap 5 (5-15); BUN 16 mg/dL (7-18); BUN/Creat Ratio 24.6 RATIO (10-20); Calcium,Total 9.5 mg/dL (8.5-10.1); Chloride 105 mmol/L (98-107); Cholesterol 175 mg/dL (200); Creatinine, Serum 0.65 mg/dL (0.55-1.02); EST Glomerular Filtration Rate 96 mL/min (>60); Est Glom Filt Rate - Afr Amer 116 mL/min (>60); Globulin 3.7 g/dL (2.2-4.2); Glucose 89 mg/dL (74-106); High Density Lipoprotein 59 mg/dL; Potassium 4.2 mmol/L (3.5-5.1); Protein, Total 7.4 g/dL (6.4-8.2); Sodium Level 141 mmol/L (136-145); Triglycerides 70 mg/dL; Very Low Density Lipoprotein 14 mg/dL (5-40)
[2020-06-21 12:30] LABS: Vitamin D,25 Hydroxy 74.5 ng/mL
== END ==
PROVIDERS: PCP Internal Medicine; Referring Provider Internal Medicine; Visit Provider Nurse Practitioner Family
DX: Z12.31 Encounter for screening mammogram for malignant neoplasm of breast (principal); K21.9 Gastro-esophageal reflux disease without esophagitis; Z80.3 Family history of malignant neoplasm of breast; M85.80 Other specified disorders of bone density and structure, unspecified site; I65.29 Occlusion and stenosis of unspecified carotid artery
CPT/HCPCS: 36415; 77063; 77067; 80053; 80061; 82306; 85025

== ENCOUNTER → 2020-07-06 08:57 | Outpatient (CLI) | payer MEDICARE, OTHER, SELFPAY ==
[2020-06-21 08:45] VITALS: BMI 23.3
--- NOTE | 2020-07-06 09:02 | BD_ITS ---
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 COMPARISON: Comparison is made with prior examination dated 05/16/2018. FINDINGS: Lumbar Spine (L1-L4): g/cm2 (1.063) / T-score (-1.0) / Z-score (0.7) Findings are suggestive of normal bone density with a low fracture risk. Left Femur Total: g/cm2 (0.867) / T-score (-1.1) / Z-score (0.2) Left Femoral Neck: g/cm2 (0.810) / T-score (-1.6) / Z-score (0.0) Right Femur Total: g/cm2 (0.932) / T-score (-0.6) / Z-score (0.8) Right Femoral Neck: g/cm2 (0.864) / T-score (-1.3) / Z-score (0.4) The T-Scores on the most recent prior examination were: Lumbar Spine (L1-L4): There has been improvement of bone density since the previous examination. Left Femur Total: which represents a worsening of 0.3%. Right Femur Total: which represents an improvement of 0.8%. BD/Dexa Bone Density Study IMPRESSION: The patient is considered osteopenic as outlined below according to World [place] Organization (WHO) criteria with a moderate fracture risk. There has been improvement of bone density since the previous examination. Reference Information: The T-score is the number of standard deviations above or below the standard which is normal for young adults at their peak bone mineral density. The World Health Organization (WHO) interprets the T-scores as follows: Above -1 Normal bone density Between -1 and -2.5 Osteopenia Equal to / or below -2.5 Osteoporosis As a practical clinical guideline, osteopenia may be graded as follows: Mild -1 through -1.5 Moderate -1.6 through -2.0 Severe -2.1 through -2.4 The Z-score is the number of standard deviations above or below age-matched controls. A Z-score of less than -1.5 would be considered abnormal. References: 1. NIH Osteoporosis and Related Bone Diseases http://www.osteo.org 2. International Society for Clinical Densitometry http://www.iscd.org 3. National Osteoporosis Foundation http://www.nof.org Electronically Signed: Marco Bright, at 11:10 EDT , Service support ,
== END ==
PROVIDERS: PCP Internal Medicine; Referring Provider Internal Medicine; Visit Provider Internal Medicine
DX: Z78.0 Asymptomatic menopausal state (principal)
CPT/HCPCS: 77080

== ENCOUNTER → 2021-07-19 08:43 | Outpatient (CLI) | payer MEDICARE, OTHER, SELFPAY ==
[2021-07-19 12:22] LABS: Absolute Lymphocyte Count 2.44 X10^3/uL (0.83-4.51); Absolute Neutrophil Count 3.4 X10^3/uL (2.0-7.7); Basophil# 0.03 X10^3/uL; Basophil% 0.5 % (0-1); Eosinophil# 0.17 X10^3/uL; Eosinophils% 2.6 % (0-5); Hematocrit 45.3 % (37-47); Lymphocyte # 2.44 X10^3/ul (0.83-4.51); Lymphocyte % 37.5 % (19-41); Mean Corp Hgb Conc 33.1 g/dL (32-36); Mean Corpuscular Hgb 31.6 pg (27.0-32.0); Mean Corpuscular Volume 95.4 fL (81-99); Mean Platelet Vol. 9.6 fl (6.2-12.0); Monocyte# 0.47 X10^3/uL; Monocyte% 7.2 % (0-10); NRBC Flagged by Analyzer 0 % (0-5); Neutrophil # 3.39 X10^3/uL (2.7-7.7); Platelet Count 260 K/mm3 (150-450); RBC Distribution Width CV 12.6 % (11.6-14.6); RBC Distribution Width SD 44.9 fl (35.1-43.9); Red Blood Count 4.75 M/mm3 (4.2-5.4); White Blood Count 6.5 K/mm3 (4.4-11.0)
[2021-07-19 12:36] LABS: ALB/GLOB Ratio 0.9 RATIO (0.9-2.4); AST(SGOT) 29 U/L (15-37); Alanine Aminotransfer ALT/SGPT 47 U/L (13-56); Albumin, Serum 3.6 g/dL (3.2-5.0); Alkaline Phosphatase 100 U/L (45-117); Anion Gap 3 (5-15); BUN 19 mg/dL (7-18); Calcium,Total 9.8 mg/dL (8.5-10.1); Chloride 107 mmol/L (98-107); Cholesterol 218 mg/dL (200); Creatinine, Serum 0.61 mg/dL (0.55-1.02); EST Glomerular Filtration Rate 103 mL/min (>60); Est Glom Filt Rate - Afr Amer 125 mL/min (>60); Globulin 3.9 g/dL (2.2-4.2); Glucose 95 mg/dL (74-106); High Density Lipoprotein 72 mg/dL; Potassium 4.4 mmol/L (3.5-5.1); Protein, Total 7.5 g/dL (6.4-8.2); Sodium Level 140 mmol/L (136-145); Triglycerides 70 mg/dL; Very Low Density Lipoprotein 14 mg/dL (5-40)
== END ==
PROVIDERS: PCP Internal Medicine; Referring Provider Internal Medicine; Visit Provider Internal Medicine
DX: I10 Essential (primary) hypertension (principal); R03.0 Elevated blood-pressure reading, without diagnosis of hypertension; K21.9 Gastro-esophageal reflux disease without esophagitis; M85.80 Other specified disorders of bone density and structure, unspecified site
CPT/HCPCS: 36415; 80053; 80061; 85025

== ENCOUNTER → 2021-08-18 14:52 | Outpatient (CLI) | payer MEDICARE, OTHER, SELFPAY ==
--- NOTE | 2021-08-18 14:56 | BI_ITS ---
MAMMOGRAPHY - BILATERAL SCREENING REASON FOR EXAM: Female, 71 years old. Routine annual screening examination. PERTINENT HISTORY: Mother with breast cancer. Aunt with breast cancer. TECHNIQUE: Digital bilateral breast corrie (3D mammographic acquisition) in the CC and MLO projections. 2-D mediolateral oblique (MLO) and craniocaudad (CC) views of both breasts were obtained. CAD: Full Field Digital Mammography with Computer Added Detection was performed. COMPARISON: Comparison is made with prior examination 06/21/2020 and 05/26/2019. FINDINGS: Breast Composition: The breasts are heterogeneously dense, which may obscure small masses. There are no dominant masses or suspicious calcifications. Stable bilateral macrocalcifications. Stable benign-appearing bilateral axillary lymph. No other significant abnormalities are identified. There has been no significant change since the prior study. BI/SCRN MAMM (CAD)W/CORRIE BILAT IMPRESSION: Stable bilateral screening mammogram. Yearly follow-up mammogram recommended. (A) ASSESSMENT CATEGORY: BIRADS Category 2: Benign. A letter regarding these results will be sent to the patient by the facility within 30 days. Approximately 10% of breast cancers are not detected by mammography. A normal mammogram should not delay biopsy of a clinically suspicious abnormality. [id number] Electronically Signed: Marco Bright MD at 15:36 EDT , Service support ,
== END ==
PROVIDERS: PCP Internal Medicine; Visit Provider Internal Medicine
DX: Z12.31 Encounter for screening mammogram for malignant neoplasm of breast (principal)
CPT/HCPCS: 77063; 77067

== ENCOUNTER 2022-05-12 18:25 | Emergency (ER) | payer MEDICARE, OTHER, SELFPAY ==
[2022-05-12 18:26] VITALS: BP 136/83; PULSE 87; RESP 16; TEMP 36.5; O2SAT 98; BMI 24.1
--- NOTE | 2022-05-12 18:53 | CT_ITS ---
STUDY: CTA HEAD AND NECK WITH CONTRAST REASON FOR EXAM: Female, 72 years old. Vision changes. RADIATION DOSAGE (If Supplied By Facility): CTDIvol = ( 25.67 ) mGy, DLP = ( 1397.73 ) mGycm TECHNIQUE: CT angiography was performed with a multi-detector CT scanner. Data acquisition was obtained from the skull base through the vertex following intravenous administration of 100 mL of ISOVUE 370. MIP images were reconstructed from the axial data set. Post-processing of the angiographic images was performed, with multiplanar reformation and 3D reconstruction. Individualized dose optimization techniques were used for this CT. COMPARISON: No relevant priors. FINDINGS: Normal bilateral petrous carotid arteries. Normal right cavernous carotid artery with a normal supraclinoid bifurcation. Normal left cavernous carotid artery with a normal supraclinoid bifurcation. Normal right A1 segments of the anterior cerebral artery. Normal left A1 segments of the anterior cerebral artery. Normal intact anterior communicating artery (ACOM). Normal bilateral A2 segments of the anterior cerebral arteries. Normal right M1 and M2 segments of the middle cerebral arteries, with a normal M1 bifurcation. Normal left M1 and M2 segments of the middle cerebral arteries, with a normal M1 bifurcation. Normal right posterior communicating artery (PCOM). Normal left posterior communicating artery (PCOM). Normal bilateral vertebral arteries. Normal basilar artery with a normal basilar bifurcation. The visualized bilateral superior cerebellar (SCA) arteries are normal. Normal bilateral P1, P2 and visualized P3 segments of the posterior cerebral arteries. There is no demonstrated aneurysm of the [place] of [place]. There is no demonstrated abnormality of the visualized brain. AORTIC ARCH: Normal visualized aortic arch. Normal origins of the brachiocephalic, left common carotid, and left subclavian arteries. RIGHT CAROTID ARTERIES: Normal right common carotid artery (CCA). Normal right common carotid bulb. Normal origin of the right internal carotid (ICA) artery without a hemodynamically significant stenosis. Normal visualized cervical portion of the right internal carotid artery. Normal origin of the right external carotid artery (ECA). LEFT CAROTID ARTERIES: Normal left common carotid artery (CCA). Normal left common carotid bulb. Normal origin of the left internal carotid (ICA) artery without a hemodynamically significant stenosis. Normal visualized cervical portion of the left internal carotid artery. Normal origin of the left external carotid artery (ECA). VERTEBRAL ARTERIES: Normal bilateral vertebral arteries. CT/CTA Head AND Neck W/ Contrast IMPRESSION: Normal CTA Head and neck with contrast. Electronically Signed: Fei Zuniga DO at 20:32 EDT ,
--- NOTE | 2022-05-12 18:54 | EKG12_ITS ---
Test Reason : DYSRHYTHMIA Blood Pressure : / mmHG Vent. Rate : 066 BPM Atrial Rate : 066 BPM P-R Int : 184 ms QRS Dur : 086 ms QT Int : 402 ms P-R-T Axes : 056 -17 008 degrees QTc Int : 421 ms Normal sinus rhythm Normal ECG Confirmed by YVETTE WATKINS, CHIP ([id number]), tape editor IQRA PFEIFFER ([id number]) on 05/15/2022 11:32:24 AM Referred By: BREANNA Confirmed By:CHIP CRAWFORD MD
[2022-05-12] MEDS: 0.9% Normal Saline 1,000 ML 150 ML IV (19:07)
[2022-05-12 19:17] LABS: Absolute Neutrophil Count 4.4 X10^3/uL (2.0-7.7); Basophil# 0.02 X10^3/uL; Basophil% 0.2 % (0-1); Eosinophil# 0.22 X10^3/uL; Eosinophils% 2.7 % (0-5); Hemoglobin 14.3 g/dL (12.0-15.0); Lymphocyte % 36.4 % (19-41); Mean Corp Hgb Conc 33.3 g/dL (32-36); Mean Corpuscular Hgb 31.6 pg (27.0-32.0); Mean Corpuscular Volume 95.1 fL (81-99); Mean Platelet Vol. 9.3 fl (6.2-12.0); Monocyte# 0.53 X10^3/uL; Monocyte% 6.4 % (0-10); NRBC Flagged by Analyzer 0 % (0-5); Neutrophil # 4.44 X10^3/uL (2.7-7.7); Neutrophil % 53.9 % (47-70); Platelet Count 214 K/mm3 (150-450); RBC Distribution Width CV 12.5 % (11.6-14.6); RBC Distribution Width SD 44.1 fl (35.1-43.9); Red Blood Count 4.52 M/mm3 (4.2-5.4); White Blood Count 8.2 K/mm3 (4.4-11.0)
[2022-05-12 19:33] LABS: Anion Gap 5 (5-15); BUN 23 mg/dL (7-18); BUN/Creat Ratio 31.2 RATIO (10-20); Calcium,Total 9.5 mg/dL (8.5-10.1); Chloride 107 mmol/L (98-107); Creatinine, Serum 0.74 mg/dL (0.55-1.02); EST Glomerular Filtration Rate 83 mL/min (>60); Est Glom Filt Rate - Afr Amer 100 mL/min (>60); Glucose 127 mg/dL (74-106); Potassium 3.7 mmol/L (3.5-5.1); Sodium Level 141 mmol/L (136-145)
--- NOTE | 2022-05-12 19:57 | EDS_ITS ---
HPI History of Present Illness Chief Complaint: Vision Prob Informant: patient Onset/Context/Timing Onset: Today Current Severity: Mild Maximum Severity: Moderate Narrative Narrative: Patient present secondary to vision change from her right eye. Patient states around 6:00 tonight she was drying her hair. When she would look in the mirror she could not see her right eye looking back at her. She states that she has had ocular migraines in the past and would have a visual field cut similar to this. She denies any headache. She states symptoms are improved at this time and she thought they were completely resolved, however on the car ride here she still felt like things were blurry out of her right peripheral vision. She believes just her right eye was involved but did not test each eye singularly. She had no facial droop or speech difficulty. No other neuro symptoms. [facility] Medical History Anaphylactic reaction to bee sting Chronic headaches Elevated blood pressure reading GERD (gastroesophageal reflux disease) Glaucoma Health care maintenance Kidney stones Osteopenia Home Medications aspirin 81 mg chewable tablet 162 mg PO DAILY@0800 Heart 02/05/14 [History Last Taken 01/24/18] multivitamin with folic acid 400 mcg tablet 1 tab PO DAILY Vitamin 02/05/14 [History Last Taken 01/24/18] omega 3-dha 60 mg-epa 90 mg-fish oil 500 mg capsule, delayed release 1,200 mg PO DAILY 01/24/18 [History Last Taken 01/24/18] vitamin E 670 mg (1,000 unit) capsule 400 unit PO DAILY vitamin 01/24/18 [History Last Taken 01/24/18] latanoprost 0.005 % eye drops 1 drp ophthalmic (eye) QPM 04/18/18 [History Last Taken Unknown] multivit, calcium and minerals-vitamin D3-herbal#181 1,000 unit tablet unit PO BID 06/02/19 [History Last Taken Unknown] epinephrine 0.3 mg/0.3 mL injection, auto-injector (EpiPen) 0.3 mg (0.3 mL) IM Q10-15M PRN anaphylaxis #2 ea 07/19/21 [Rx Last Taken Unknown] methylprednisolone 4 mg tablets in a dose pack (Medrol (Charlie)) See Rx Instructions PO PER PKG DIR #21 tabs 07/19/21 [Rx Last Taken Unknown] Allergy/AdvReac Type Severity Reaction Status Date / Time diphenhydramine HCl Allergy Rash Verified 05/12/22 18:28 [From Benadryl] bee stings Allergy Severe Shortness Uncoded 05/12/22 18:28 of breath Family History Mother Breast cancer Myocardial infarction Father Myocardial infarction Heart disease CVA (cerebral vascular accident) Brother Prostate cancer Surgical History History of appendectomy History of History of hysterectomy History of surgical procedure on eye proper using laser Social History Smoking Status: Never smoker alcohol intake: never substance use type: does not use what type of physical activity do you participate in: walking frequency: 5-6 times per week ROS ROS ED Constitutional Constitutional ED: Denies chills or fever(s) Eyes Eyes: Reports change in vision; Denies discharge from eye(s) ENT ENT ED: Denies discharge from eye(s), rhinorrhea or sore throat Cardiovascular Cardiovascular: Denies chest pain or palpitations Respiratory/Chest Respiratory/Chest: Denies cough or dyspnea Gastrointestinal Gastrointestinal: Denies abdominal pain, diarrhea, nausea or vomiting Genitourinary Genitourinary ED: Denies difficulty urinating or dysuria Musculoskeletal Musculoskeletal: Denies back pain or extremity pain Integumentary Denies Abrasions or rash Neurologic Neurologic: Denies headache(s) or weakness Allergic/Immunologic Allergic/Immunologic ED: Denies lip swelling or urticaria EXAM Physical Exam Const Vital Signs: 05/12/22 18:26 05/12/22 20:26 Temperature 97.7 F L Temperature Source Temporal Pulse Rate 87 63 Respiratory Rate 16 14 Blood Pressure 136/83 H Blood Pressure Mean 100 Pulse Ox 98 Oxygen Delivery Method Room Air Positive well nourished and well developed General Appearance ED: well developed HEENT Reports moist mucous membranes and dry mucous membranes Mouth ED: Yes dry mucous membranes Mouth: dry mucous membranes Eyes PERRL and EOMs intact bilaterally Neck no lymphadenopathy Chest Wall inspection of chest normal and palpation of chest normal Resp normal respiratory effort and clear to auscultation bilaterally Cardio regular rate and regular rhythm GI normal to inspection, nondistended, normoactive bowel sounds and non-tender Palpation: soft Extremity normal to inspection Neuro oriented x3, CN's II-XII intact bilaterally and no sensory deficits noted Neuro Narrative: NIH equals 0 at the time of my exam. Vision was checked in all 4 quadrants of each eye separately with no deficits appreciated. Sensorium / Orientation: alert Motor Exam: strength 5/5 throughout Psych mental status grossly normal Skin no rashes or lesions noted MDM MDM MDM Narrative Medical decision making narrative: Patient's NIH score is 0 at the time of my exam. Lab work, EKG, CTA of the head and neck obtained. Lab Data Attestation: I reviewed the patient's lab results. Labs: Laboratory Results - last 24 hr 05/12/22 05/12/22 19:07 19:07 WBC 8.2 RBC 4.52 Hgb 14.3 Hct 43.0 MCV 95.1 MCH 31.6 MCHC 33.3 RDW Std Deviation 44.1 H RDW Coeff of [place] 12.5 Plt Count 214 MPV 9.3 Immature Gran % (Auto) 0.400 Neut % (Auto) 53.9 Lymph % (Auto) 36.4 [place] % (Auto) 6.4 Eos % (Auto) 2.7 Baso % (Auto) 0.2 Absolute Neuts (auto) 4.4 Absolute Lymphs (auto) 3.00 Nucleated RBC % 0 Sodium 141 Potassium 3.7 Chloride 107 Carbon Dioxide 29.0 Anion Gap 5 BUN 23 H Creatinine 0.74 Estim Creat Clear Calc 41.40 Est GFR (MDRD) Af Amer 100 Est GFR (MDRD) Non-Af 83 BUN/Creatinine Ratio 31.2 H Glucose 127 H Calcium 9.5 Radiography Diagnostic Testing: Clinical Impression(s) from Imaging Studies Head/Neck CTA 05/12/22 18:53 IMPRESSION: Normal CTA Head and neck with contrast. Electronically Signed: Fei Zuniga DO at 20:32 EDT Reading Location ID and State: [address] [place] [address] Tel [phone], Service support , EKG Initial EKG: Attestation: I personally reviewed and interpreted this EKG as follows: Interpretation: Sinus Rhythm (Sinus at 66 with no acute ischemia.) Treatment and Re-Evaluation Narrative: Repeat evaluation patient resting comfortably. She is had no further symptoms in the ER and feels back to baseline. Lab work is unremarkable. EKG reveals no ischemia with sinus rhythm. CTA of the head and neck is normal. With patient having similar symptoms in the past with ocular migraine I believe this is likely her etiology. I advised her to return for worsened or concerning symptoms. She voices understanding and agreement. She and are comfortable to plan. Discharge Plan Triage Chief Complaint: Vision Prob ED Provider: Yamila Syed Dx/Rx/DC Orders Clinical Impression: Change in vision, Ocular migraine Instructions: Understanding Vision Problems Prescriptions: No Action latanoprost 0.005 % drops 1 drp OPHTHALMIC QPM multivit, calcium and minerals-vitamin D3-herbal#181 1,000 unit tablet 1,000 unit tablet PO BID methylprednisolone [Medrol (Charlie)] 4 mg tablets,dose pack See Rx Instructions PO PER PKG DIR Qty: 21 1RF Rx Instructions: PO PER PKG DIR epinephrine [EpiPen] 0.3 mg/0.3 mL auto-injector 0.3 mg IM Q10-15M PRN (Reason: anaphylaxis) Qty: 2 2RF Rx Instructions: until response aspirin 81 MG tablet,chewable 162 mg PO DAILY@0800 multivitamin with folic acid 1 TABLET tablet 1 tab PO DAILY vitamin E 1,000 UNIT capsule 400 unit PO DAILY omega 4-fvr-pna-fish oil 500 MG capsule,delayed release(DR/EC) 1,200 mg PO DAILY Primary Care Provider: Dayanna Vásquez Referrals: Dayanna Vásquez MD [Primary Care Provider] - 1-2 Weeks Jarret Casey MD [STAFF PHYSICIAN] - As Needed Disposition Disposition: Home, Self Care
[2022-05-12 20:26] VITALS: PULSE 63; RESP 14
[2022-05-12 21:49] VITALS: BP 136/89; PULSE 68; RESP 16; O2SAT 97
== END 2022-05-12 21:58 | disposition home or self-care (01) ==
PROVIDERS: Emergency Provider Emergency Medicine; PCP Internal Medicine; Visit Provider Emergency Medicine
DX: G43.809 Other migraine, not intractable, without status migrainosus (principal); H53.9 Unspecified visual disturbance
CPT/HCPCS: 70496; 70498; 80048; 85025; 93005; 96360; 96361; 99284; Q9967; A4216

== ENCOUNTER → 2022-08-11 | Outpatient (CLI) | payer MEDICARE, OTHER, SELFPAY ==
[2022-08-11 13:11] LABS: Vitamin D,25 Hydroxy 48.4 ng/mL
[2022-08-11 13:19] LABS: ALB/GLOB Ratio 0.9 RATIO (0.9-2.4); AST(SGOT) 28 U/L (15-37); Alanine Aminotransfer ALT/SGPT 43 U/L (13-56); Albumin, Serum 3.6 g/dL (3.2-5.0); Alkaline Phosphatase 97 U/L (45-117); Anion Gap 6 (5-15); BUN 18 mg/dL (7-18); BUN/Creat Ratio 26.8 RATIO (10-20); Calcium,Total 9.6 mg/dL (8.5-10.1); Chloride 107 mmol/L (98-107); Cholesterol 211 mg/dL (200); Creatinine, Serum 0.67 mg/dL (0.55-1.02); EST Glomerular Filtration Rate 92 mL/min (>60); Est Glom Filt Rate - Afr Amer 112 mL/min (>60); Globulin 3.8 g/dL (2.2-4.2); Glucose 93 mg/dL (74-106); High Density Lipoprotein 78 mg/dL; Potassium 4.2 mmol/L (3.5-5.1); Protein, Total 7.4 g/dL (6.4-8.2); Sodium Level 141 mmol/L (136-145); Triglycerides 62 mg/dL; Very Low Density Lipoprotein 12 mg/dL (5-40)
== END | disposition home or self-care (01) ==
LOC: BIMLAB 09:05
PROVIDERS: PCP Internal Medicine; Referring Provider Internal Medicine; Visit Provider Internal Medicine
DX: M85.80 Other specified disorders of bone density and structure, unspecified site (principal); E78.5 Hyperlipidemia, unspecified
CPT/HCPCS: 36415; 80053; 80061; 82306

== ENCOUNTER → 2022-08-29 | Outpatient (CLI) | payer MEDICARE, OTHER, SELFPAY ==
--- NOTE | 2022-08-29 14:27 | BI_ITS ---
MAMMOGRAPHY - BILATERAL SCREENING REASON FOR EXAM: Female, 72 years old. Routine annual screening examination. PERTINENT HISTORY: Mother with breast cancer. Aunt with breast cancer. TECHNIQUE: Digital bilateral breast corrie (3D mammographic acquisition) in the CC and MLO projections. 2-D mediolateral oblique (MLO) and craniocaudad (CC) views of both breasts were obtained. CAD: Full Field Digital Mammography with Computer Added Detection was performed. COMPARISON: Comparison is made with prior study 08/18/2021 and 06/21/2020. FINDINGS: Breast Composition: The breasts are heterogeneously dense, which may obscure small masses. There are no dominant masses or suspicious calcifications. Stable benign-appearing bilateral axillary lymph nodes. Stable scattered bilateral macrocalcifications. No other significant abnormalities are identified. There has been no significant change since the prior study. BI/SCRN MAMM (CAD)W/CORRIE BILAT IMPRESSION: Stable bilateral screening mammogram. Yearly follow-up mammogram recommended. (A) ASSESSMENT CATEGORY: BIRADS Category 2: Benign. A letter regarding these results will be sent to the patient by the facility within 30 days. Approximately 10% of breast cancers are not detected by mammography. A normal mammogram should not delay biopsy of a clinically suspicious abnormality. [id number] Electronically Signed: Marco Bright MD at 15:32 EDT ,
--- NOTE | 2022-08-29 14:33 | BD_ITS ---
STUDY: DUAL ENERGY X-RAY ABSORPTIOMETRY / DXA REASON FOR EXAM: Female, 72 years old. Post- Menopausal TECHNIQUE: Bone Mineral Density (BMD) measurements of lumbar spine and bilateral hips were obtained. COMPARISON: Comparison is made with prior study dated 07/06/2020. FINDINGS: Lumbar Spine (L1-L4): g/cm2 (0.839) / T-score (-1.6) / Z-score (0.5) Findings are suggestive of osteopenia with a moderate fracture risk. Left Femur Total: g/cm2 (0.803) / T-score (-1.1) / Z-score (0.4) Left Femoral Neck: g/cm2 (0.648) / T-score (-1.8) / Z-score (0.0) Right Femur Total: g/cm2 (0.899) / T-score (-0.4) / Z-score (1.2) Right Femoral Neck: g/cm2 (0.686) / T-score (-1.5) / Z-score (0.4) The T-Scores on the most recent prior examination were: Lumbar Spine (L1-L4): There has been worsening of bone density since the previous examination. Left Femur Total: which represents a worsening of 0.3%. Right Femur Total: which represents an improvement of 3.5%. BD/Dexa Bone Density Study IMPRESSION: The patient is considered osteopenic as outlined below according to World Wes Organization (WHO) criteria with a moderate fracture risk. There has been worsening of bone density since the previous examination. Reference Information: The T-score is the number of standard deviations above or below the standard which is normal for young adults at their peak bone mineral density. The World Health Organization (WHO) interprets the T-scores as follows: Above -1 Normal bone density Between -1 and -2.5 Osteopenia Equal to / or below -2.5 Osteoporosis As a practical clinical guideline, osteopenia may be graded as follows: Mild -1 through -1.5 Moderate -1.6 through -2.0 Severe -2.1 through -2.4 The Z-score is the number of standard deviations above or below age-matched controls. A Z-score of less than -1.5 would be considered abnormal. References: 1. NIH Osteoporosis and Related Bone Diseases www osteo.org 2. International Society for Clinical Densitometry www iscd.org 3. National Osteoporosis Foundation www nof.org Electronically Signed: Marco Bright MD at 14:19 EDT ,
== END | disposition home or self-care (01) ==
LOC: OPBD 14:26
PROVIDERS: PCP Internal Medicine; Referring Provider Internal Medicine; Visit Provider Internal Medicine
DX: Z12.31 Encounter for screening mammogram for malignant neoplasm of breast (principal); Z80.3 Family history of malignant neoplasm of breast; Z78.0 Asymptomatic menopausal state
CPT/HCPCS: 77063; 77067; 77080

== ENCOUNTER → 2022-09-05 | Outpatient (CLI) | payer MEDICARE, OTHER, SELFPAY ==
--- NOTE | 2022-09-05 09:01 | CDU_ITS ---
Reason For Study: carotid stenosis Rt. Velocities/BP Lt. Velocities/BP Prox CCA 75.9/23.9 cm/sec. Prox CCA 80.2/28.6 cm/sec. Mid CCA 69.2/23.0 cm/sec. Mid CCA 76.5/27.4 cm/sec. Dist CCA 71.1/23.0 cm/sec. Dist CCA 59.3/20.0 cm/sec. Prox ICA 80.6/30.5 cm/sec. Prox ICA 56.9/22.5 cm/sec. Mid ICA 117.4/48.0 cm/sec. Mid ICA 91.2/38.4 cm/sec. Dist ICA 137.5/51.7 cm/sec. Dist ICA 86.3/38.4 cm/sec. Rt. ICA/CCA = 2.0. Lt. ICA/CCA = 1.2. Prox ECA 64.5/12.6 cm/sec. Prox ECA 70.4/13.9 cm/sec. Rt. Vert. 54.4/13.9 cm/sec. Lt. Vert. 69.1/22.5 cm/sec. Right Extracranial There is intimal thickening but no significant atherosclerotic plaque noted in the right common carotid artery. There is intimal thickening but no significant atherosclerotic plaque noted in the right internal carotid artery. There is intimal thickening but no significant atherosclerotic plaque noted in the right external carotid artery. Antegrade flow is noted in the right vertebral artery. Left Extracranial There is intimal thickening but no significant atherosclerotic plaque noted in the left common carotid artery. There is intimal thickening but no significant atherosclerotic plaque noted in the left internal carotid artery. There is intimal thickening but no significant atherosclerotic plaque noted in the left external carotid artery. Antegrade flow is noted in the left vertebral artery. Procedure Carotid Duplex 11642. This is a Carotid Duplex examination using B-mode, color flow and specral Doppler. The exam was diagnostic. Exam performed in department. VL/Carotid Duplex Ultrasound Interpretation Summary Normal right extracranial internal carotid. Distal elevated velocities without associated plaque or turbulence Normal left extracranial internal carotid. Patent and antegrade vertebrals bilaterally. Ordering Physician: Dayanna Vásquez Referring Physician: Dayanna Vásquez Performed By: Josue Garrison RVT
== END | disposition home or self-care (01) ==
LOC: CVS 09:00
PROVIDERS: PCP Internal Medicine; Referring Provider Internal Medicine; Visit Provider Internal Medicine
DX: I65.23 Occlusion and stenosis of bilateral carotid arteries (principal)
CPT/HCPCS: 93880

== ENCOUNTER → 2023-08-13 | Outpatient (CLI) | payer MEDICARE, OTHER, SELFPAY ==
[2023-08-13 12:21] LABS: Absolute Lymphocyte Count 2.16 X10^3/uL (0.83-4.51); Absolute Neutrophil Count 3.6 X10^3/uL (2.0-7.7); Basophil# 0.02 X10^3/uL; Basophil% 0.3 % (0-1); Eosinophil# 0.21 X10^3/uL; Eosinophils% 3.3 % (0-5); Hematocrit 47.1 % (37-47); Hemoglobin 15.2 g/dL (12.0-15.0); Lymphocyte # 2.16 X10^3/ul (0.83-4.51); Lymphocyte % 33.8 % (19-41); Mean Corp Hgb Conc 32.3 g/dL (32-36); Mean Corpuscular Hgb 30.9 pg (27.0-32.0); Mean Corpuscular Volume 95.7 fL (81-99); Mean Platelet Vol. 9.3 fl (6.2-12.0); Monocyte# 0.42 X10^3/uL; Monocyte% 6.6 % (0-10); NRBC Flagged by Analyzer 0 % (0-5); Neutrophil # 3.58 X10^3/uL (2.7-7.7); Neutrophil % 55.8 % (47-70); Platelet Count 268 K/mm3 (150-450); RBC Distribution Width SD 42.5 fl (35.1-43.9); Red Blood Count 4.92 M/mm3 (4.2-5.4); White Blood Count 6.4 K/mm3 (4.4-11.0)
[2023-08-13 12:41] LABS: Vitamin D,25 Hydroxy 59.2 ng/mL
[2023-08-13 12:58] LABS: ALB/GLOB Ratio 0.9 RATIO (0.9-2.4); AST(SGOT) 30 U/L (15-37); Alanine Aminotransfer ALT/SGPT 43 U/L (13-56); Albumin, Serum 3.7 g/dL (3.2-5.0); Alkaline Phosphatase 115 U/L (45-117); Anion Gap 4 (5-15); BUN 19 mg/dL (7-18); BUN/Creat Ratio 25.5 RATIO (10-20); Chloride 107 mmol/L (98-107); Cholesterol 206 mg/dL (200); Creatinine, Serum 0.75 mg/dL (0.55-1.02); EST Glomerular Filtration Rate 81 mL/min (>60); Est Glom Filt Rate - Afr Amer 99 mL/min (>60); Globulin 4.3 g/dL (2.2-4.2); Glucose 106 mg/dL (74-106); High Density Lipoprotein 64 mg/dL; Potassium 4.7 mmol/L (3.5-5.1); Sodium Level 139 mmol/L (136-145); Triglycerides 66 mg/dL; Very Low Density Lipoprotein 13 mg/dL (5-40)
== END | disposition home or self-care (01) ==
LOC: BIMLAB 10:53
PROVIDERS: PCP Internal Medicine; Visit Provider Internal Medicine
DX: E78.5 Hyperlipidemia, unspecified (principal); M85.80 Other specified disorders of bone density and structure, unspecified site
CPT/HCPCS: 36415; 80053; 80061; 82306; 85025

== ENCOUNTER → 2023-09-04 | Outpatient (CLI) | payer MEDICARE, OTHER, SELFPAY ==
--- NOTE | 2023-09-04 08:08 | BI_ITS ---
MAMMOGRAPHY - BILATERAL SCREENING REASON FOR EXAM: Female, 73 years old. Routine annual screening examination. PERTINENT HISTORY: Mother with breast cancer. Aunt with breast cancer. TECHNIQUE: Digital bilateral breast corrie (3D mammographic acquisition) in the CC and MLO projections. 2-D mediolateral oblique (MLO) and craniocaudad (CC) views of both breasts were obtained. CAD: Full Field Digital Mammography with Computer Added Detection was performed. COMPARISON: Comparison is made with prior examination dated August 29, 2022 and August 18, 2021. FINDINGS: Breast Composition: The breasts are heterogeneously dense, which may obscure small masses. There are no dominant masses or suspicious calcifications. Stable benign-appearing bilateral axillary lymph nodes. No other significant abnormalities are identified. There has been no significant change since the prior study. BI/SCRN MAMM (CAD)W/CORRIE BILAT IMPRESSION: Stable bilateral screening mammogram. Yearly follow-up mammogram recommended. (A) ASSESSMENT CATEGORY: BIRADS Category 2: Benign. A letter regarding these results will be sent to the patient by the facility within 30 days. Approximately 10% of breast cancers are not detected by mammography. A normal mammogram should not delay biopsy of a clinically suspicious abnormality. [id number] Electronically Signed: Marco Bright MD at 8:49 EST ,
== END | disposition home or self-care (01) ==
LOC: OPBI 08:06
PROVIDERS: PCP Internal Medicine; Referring Provider Internal Medicine; Visit Provider Internal Medicine
DX: Z12.31 Encounter for screening mammogram for malignant neoplasm of breast (principal); Z80.3 Family history of malignant neoplasm of breast
CPT/HCPCS: 77063; 77067

== ENCOUNTER 2023-12-19 07:52 | Day surgery (SDC) | payer MEDICARE, OTHER, SELFPAY ==
[2023-12-19] VITALS (7 sets, daily range): BP systolic 79–117; BP diastolic 54–79; PULSE 61–91; RESP 16; TEMP 36.4–36.9; O2SAT 94–100; BMI 25.6
--- NOTE | 2023-12-19 08:01 | HP.PCM_ITS ---
[facility] - General General Date of Admission: 12/19/23 Date of Service: 12/19/23 Chief Complaint: Screening colonoscopy [facility] Narrative PATRICIA MUNROE, is a 73 F who presents for screening colonoscopy. She had a colonoscopy approximately 11 years ago and was discovered to have mild diverticular disease. She does not have any problems with her bowels. She denies any nausea, vomiting or diarrhea. She also denies any bleeding per rectum. She does have a history of carotid artery stenosis, gastroesophageal reflux disease, osteopenia, hypertension and history of kidney stones along with glaucoma. All those are stable at this time. [facility]LY [facility] Medical History (Updated 12/18/23 @ 12:21 by Lizabeth Stern) Anaphylactic reaction to bee sting Chronic headaches Colon cancer screening Elevated blood pressure reading GERD (gastroesophageal reflux disease) Glaucoma Health care maintenance Heartburn History of stress test Hyperlipidemia Hypertension Kidney stones Non-smoker Osteopenia Wears glasses Home Medications aspirin 81 mg chewable tablet 162 mg PO DAILY@0800 Heart 02/05/14 [History Last Taken 01/24/18] omega 3-dha 60 mg-epa 90 mg-fish oil 500 mg capsule, delayed release 1,200 mg PO DAILY 01/24/18 [History Last Taken 01/24/18] vitamin E 670 mg (1,000 unit) capsule 400 unit PO DAILY vitamin 01/24/18 [History Last Taken 01/24/18] latanoprost 0.005 % eye drops 1 drp ophthalmic (eye) QPM 04/18/18 [History Last Taken Unknown] epinephrine 0.3 mg/0.3 mL injection, auto-injector (EpiPen) 0.3 mg (0.3 mL) IM Q10-15M PRN anaphylaxis #2 ea 07/19/21 [Rx Last Taken Unknown] calcium carbonate 600 mg-vitamin D3 20 mcg (800 unit) tablet 1 tab PO BID 08/10/22 [History Last Taken Unknown] cholecalciferol (vitamin D3) 10 mcg (400 unit) capsule 10 mcg PO DAILY 08/10/22 [History Last Taken Unknown] cholecalciferol (vitamin D3) 25 mcg (1,000 unit) capsule 25 mcg PO DAILY 08/10/22 [History Last Taken Unknown] multivitamin with iron 1 tab PO DAILY 08/10/22 [History Last Taken Unknown] methylprednisolone 4 mg tablets in a dose pack (Medrol (Charlie)) See Rx Instructions PO PER PKG DIR #21 tabs 08/13/23 [Rx Last Taken Unknown] brimonidine 0.2 % eye drops 1 drp ophthalmic (eye) BID 12/18/23 [History Last Taken Unknown] Allergy/AdvReac Type Severity Reaction Status Date / Time bee venom protein (honey bee) Allergy Severe Shortness Verified 12/18/23 12:12 of breath diphenhydramine HCl Allergy Rash Verified 12/18/23 12:12 [From Benadryl] Family History Mother Breast cancer Myocardial infarction Father Myocardial infarction Heart disease CVA (cerebral vascular accident) Brother Prostate cancer Surgical History (Updated 12/18/23 @ 12:21 by Lizabeth Stern) History of appendectomy History of History of eye surgery History of hysterectomy History of surgical procedure on eye proper using laser Hx of colonoscopy Social History (Updated 11/23/23 @ 14:43 by Syeda Fuentes) current occupational status: retired Smoking Status: Never smoker alcohol intake: never substance use type: does not use what type of physical activity do you participate in: walking frequency: 5-6 times per week ROS Review of Systems ROS Unobtainable: other Constitutional Constitutional: Denies fatigue, fever(s), poor appetite, weight gain or weight loss ENT HEENT: Denies mouth lesions Cardiovascular Cardiovascular: Denies abdominal bloating, abdominal edema or abdominal pain Respiratory/Chest Respiratory/Chest: Denies change in mental status, change in phlegm color, chest congestion or chest tightness Gastrointestinal Gastrointestinal: Denies belching, bloating, change in bowel habits, change in stool character, chewing difficulty, coffee ground emesis, constipation, cramping, diarrhea, dyspepsia, dysphagia, early satiety, excessive flatus, fecal incontinence, heartburn, hematemesis, hematochezia, hemorrhoids, loose stools, melena, nausea, odynophagia, rectal bleeding, tenesmus, vomiting or weight changes Genitourinary Genitourinary: Denies abdominal discomfort, burning urination or itching Musculoskeletal Musculoskeletal: Reports as per HPI; Denies muscle weakness or myalgias Integumentary Integumentary: Denies jaundice Neurologic Neurologic: Denies lack of coordination or weakness Psychiatric Psychiatric: Denies confusion, depression, memory loss, mood swings, paranoia or suicidal ideation Endocrine Endocrinology: Denies systems reviewed and no addt'l complaints, except as documented Hematologic/Lymphatic Hematologic/Lymphatic: Denies anemia, easy bleeding, easy bruising or lymphadenopathy Allergic/Immunologic Allergic/Immunologic: Denies systems reviewed and no addt'l complaints, except as documented Physical Exam Const alert General Appearance: cooperative Orientation / Consciousness: oriented to person HEENT hearing grossly normal bilaterally Head and Scalp: normal to inspection Face and Sinus: face symmetric Nose: external nose normal Mouth: oral and palatal mucosa normal Eyes conjunctivae normal General Eye: normal appearance of both eyes Neck full ROM General: normal visual inspection Lymph Lymphatic: no lymphadenopathy noted Chest inspection of chest normal and palpation of chest normal Chest: symmetrical chest wall rise Resp normal respiratory effort Effort and Inspection: able to speak in complete sentences Cardio regular rate GI non-distended Percussion: normal to percussion Rectal Exam: deferred Neuro Speech: speech normal Gait (Neuro): normal gait Assessment & Plan Assessment/Plan (1) Encounter for screening for malignant neoplasm of colon: PLAN: She was explained alternatives, risk, benefits including not withstanding bleeding, infection, sepsis, perforation, need for emergent surgery and . She will have an ASA of 3.
[2023-12-19] MEDS: Lactated Ringers 1,000 ML 15 ML IV (08:12)
--- NOTE | 2023-12-19 09:17 | OP.COLON_ITS ---
Patient Name: Sylvie Johnson Procedure Date: 12/19/2023 8:45 AM Date of : 1950 Age: 73 Procedure: Colonoscopy Indications: Screening for colorectal malignant neoplasm Providers: Apollo Peacock DO Referring MD: Apollo Peacock DO Medicines: Monitored Anesthesia Care Patient Profile: This is a 73 year old female. Refer to note in patient chart for documentation of history and physical. Last Colonoscopy: more than 10 years ago. Complications: No immediate complications. Procedure: Pre-Anesthesia Assessment: - Prior to the procedure, a History and Physical was performed, and patient medications and allergies were reviewed. The patient is competent. The risks and benefits of the procedure and the sedation options and risks were discussed with the patient. All questions were answered and informed consent was obtained. Patient identification and proposed procedure were verified by the physician in the pre-procedure area. Mental Status Examination: alert and oriented. Airway Examination: normal oropharyngeal airway and neck mobility. CV Examination: normal. Prophylactic Antibiotics: The patient does not require prophylactic antibiotics. Prior Anticoagulants: The patient has taken no anticoagulant or antiplatelet agents. ASA Grade Assessment: II - A patient with mild systemic disease. After reviewing the risks and benefits, the patient was deemed in satisfactory condition to undergo the procedure. The anesthesia plan was to use moderate sedation / analgesia (conscious sedation). Immediately prior to administration of medications, the patient was re-assessed for adequacy to receive sedatives. The heart rate, respiratory rate, oxygen saturations, blood pressure, adequacy of pulmonary ventilation, and response to care were monitored throughout the procedure. The physical status of the patient was re-assessed after the procedure. After I obtained informed consent, the scope was passed under direct vision. Throughout the procedure, the patient's blood pressure, pulse, and oxygen saturations were monitored continuously. The pediatric colonoscope was introduced through the anus and advanced to the cecum, identified by appendiceal orifice and ileocecal valve. The colonoscopy was performed without difficulty. The patient tolerated the procedure well. The quality of the bowel preparation was adequate. The ileocecal valve, appendiceal orifice, and rectum were photographed. Scope In: 8:59:41 AM Scope Withdrawal Time 0 hours 7 minutes 53 seconds Scope Out: 9:11:55 AM Total Procedure Duration Time 0 hours 12 minutes 14 seconds Findings: The perianal and digital rectal examinations were normal. Multiple small and large-mouthed diverticula were found in the entire colon. The exam was otherwise without abnormality on direct and retroflexion views. Impression: - Diverticulosis in the entire examined colon. - The examination was otherwise normal on direct and retroflexion views. - No specimens collected. Recommendation: - Discharge patient to home. - Resume previous diet. - Continue present medications. - Repeat colonoscopy in 10 years for screening purposes. Procedure Code(s): --- Professional --- G0121, Colorectal cancer screening; colonoscopy on individual not meeting criteria for high risk CPT copyright 2021 [employer]. All rights reserved. The codes documented in this report are preliminary and upon plant breeder review may be revised to meet current compliance requirements. Apollo Peacock DO 12/19/2023 9:17:04 AM This report has been signed electronically. Number of Addenda: 0 Note Initiated On: 12/19/2023 8:45 AM
--- NOTE | 2023-12-19 09:17 | OP.CCLET_ITS ---
12/19/2023 Dayanna Vásquez MD [address] [place] [address] [place] [address] Re : Colonoscopy procedure for Sylvie Johnson Dear Dr. Vásquez This procedure was performed on Tuesday, December 19, 2023. My impressions and recommendations are as follows: Impressions : - Diverticulosis in the entire examined colon. - The examination was otherwise normal on direct and retroflexion views. - No specimens collected. Recommendations : - Discharge patient to home. - Resume previous diet. - Continue present medications. - Repeat colonoscopy in 10 years for screening purposes. My findings are described in the full procedure note, which is enclosed. If I can be of further assistance, please feel free to contact me at . Sincerely, Apollo Peacock, 12/19/2023 9:17:04 AM This report has been signed electronically.
== END 2023-12-19 10:22 | disposition home or self-care (01) ==
LOC: EN 07:52 → AC 07:54
PROVIDERS: PCP Internal Medicine; Referring Provider Internal Medicine; Visit Provider Internal Medicine Gastroenterology
PROC: 0DJD8ZZ Inspection of Lower Intestinal Tract, Via Natural or Artificial Opening Endoscopic (ICD-10-PCS; CPT 45378; principal; 2023-12-19 08:55)
DX: Z12.11 Encounter for screening for malignant neoplasm of colon (principal); K21.9 Gastro-esophageal reflux disease without esophagitis; K57.30 Diverticulosis of large intestine without perforation or abscess without bleeding; E78.5 Hyperlipidemia, unspecified; M85.80 Other specified disorders of bone density and structure, unspecified site; I10 Essential (primary) hypertension; Z79.82 Long term (current) use of aspirin; Z87.442 Personal history of urinary calculi
CPT/HCPCS: G0121; J7120; J2405

== ENCOUNTER → 2024-09-18 | Outpatient (CLI) | payer MEDICARE, OTHER, SELFPAY ==
[2024-09-18 12:16] LABS: Absolute Lymphocyte Count 2.22 X10^3/uL (0.83-4.51); Basophil# 0.02 X10^3/uL; Basophil% 0.3 % (0-1); Eosinophil# 0.16 X10^3/uL; Eosinophils% 2.8 % (0-5); Hematocrit 44.1 % (37-47); Hemoglobin 14.9 g/dL (12.0-15.0); Lymphocyte # 2.22 X10^3/ul (0.83-4.51); Lymphocyte % 38.6 % (19-41); Mean Corp Hgb Conc 33.8 g/dL (32-36); Mean Corpuscular Hgb 31.5 pg (27.0-32.0); Mean Corpuscular Volume 93.2 fL (81-99); Mean Platelet Vol. 9.5 fl (6.2-12.0); Monocyte# 0.35 X10^3/uL; Monocyte% 6.1 % (0-10); NRBC Flagged by Analyzer 0 % (0-5); Neutrophil # 2.97 X10^3/uL (2.7-7.7); Neutrophil % 51.7 % (47-70); Platelet Count 289 K/mm3 (150-450); RBC Distribution Width CV 12.8 % (11.6-14.6); RBC Distribution Width SD 43.8 fl (35.1-43.9); Red Blood Count 4.73 M/mm3 (4.2-5.4); White Blood Count 5.8 K/mm3 (4.4-11.0)
[2024-09-18 12:37] LABS: Vitamin D,25 Hydroxy 54.2 ng/mL
[2024-09-18 12:46] LABS: ALB/GLOB Ratio 0.9 RATIO (0.9-2.4); AST(SGOT) 50 U/L (15-37); Alanine Aminotransfer ALT/SGPT 70 U/L (13-56); Albumin, Serum 3.5 g/dL (3.2-5.0); Alkaline Phosphatase 132 U/L (45-117); Anion Gap 5 (5-15); BUN 17 mg/dL (7-18); BUN/Creat Ratio 27.9 RATIO (10-20); Calcium,Total 9.8 mg/dL (8.5-10.1); Chloride 107 mmol/L (98-107); Cholesterol 221 mg/dL (200); Creatinine, Serum 0.61 mg/dL (0.55-1.02); EST Glomerular Filtration Rate 102 mL/min (>60); Est Glom Filt Rate - Afr Amer 124 mL/min (>60); Glucose 103 mg/dL (74-106); High Density Lipoprotein 69 mg/dL; Potassium 4.3 mmol/L (3.5-5.1); Protein, Total 7.5 g/dL (6.4-8.2); Sodium Level 140 mmol/L (136-145); Triglycerides 104 mg/dL; Very Low Density Lipoprotein 21 mg/dL (5-40)
== END | disposition home or self-care (01) ==
LOC: BIMLAB 09:43
PROVIDERS: PCP Internal Medicine; Referring Provider Internal Medicine; Visit Provider Internal Medicine
DX: I10 Essential (primary) hypertension (principal); M85.80 Other specified disorders of bone density and structure, unspecified site
CPT/HCPCS: 36415; 80053; 80061; 82306; 85025

== ENCOUNTER → 2024-10-23 | Outpatient (CLI) | payer MEDICARE, OTHER, SELFPAY ==
--- NOTE | 2024-10-23 14:23 | BD_ITS ---
STUDY: DUAL ENERGY X-RAY ABSORPTIOMETRY / DXA REASON FOR EXAM: Female, 74 years old. Post Menopausal TECHNIQUE: Bone Mineral Density (BMD) measurements of lumbar spine and bilateral hips were obtained. COMPARISON: 08/29/2022 FINDINGS: Lumbar Spine (L1-L4): g/cm2 (0.877) / T-score (-1.5) / Z-score (0.7) Findings are suggestive of osteopenia with a moderate fracture risk. Left Femur Total: g/cm2 (0.756) / T-score (-1.5) / Z-score (0.1) Left Femoral Neck: g/cm2 (0.570) / T-score (-2.5) / Z-score (-0.6) Right Femur Total: g/cm2 (0.860) / T-score (-0.7) / Z-score (1.0) Right Femoral Neck: g/cm2 (0.659) / T-score (-1.7) / Z-score (0.2) BD/Dexa Bone Density Study IMPRESSION: The patient is considered osteoporotic as outlined below according to World [employer] Organization (WHO) criteria with a high fracture risk. There has been worsening of bone density since the previous examination. Reference Information: The T-score is the number of standard deviations above or below the standard which is normal for young adults at their peak bone mineral density. The World Health Organization (WHO) interprets the T-scores as follows: Above -1 Normal bone density Between -1 and -2.5 Osteopenia Equal to / or below -2.5 Osteoporosis As a practical clinical guideline, osteopenia may be graded as follows: Mild -1 through -1.5 Moderate -1.6 through -2.0 Severe -2.1 through -2.4 The Z-score is the number of standard deviations above or below age-matched controls. A Z-score of less than -1.5 would be considered abnormal. References: 1. NIH Osteoporosis and Related Bone Diseases www osteo.org 2. International Society for Clinical Densitometry www iscd.org 3. National Osteoporosis Foundation www nof.org Electronically Signed: Parish Alvarado MD at 15:29 EST ,
--- NOTE | 2024-10-23 14:23 | BI_ITS ---
MAMMOGRAPHY - BILATERAL SCREENING 3-D TOMOSYNTHESIS REASON FOR EXAM: Female, 74 years old. Breast Cancer Screening PERTINENT HISTORY: No significant family history. TECHNIQUE: 2-D mammograms and 3-D Tomosynthesis of the breast (s) were performed. CAD was performed. COMPARISON: 09/04/2023 FINDINGS: The breast composition is Extermely dense tissue. Scattered benign calcifications are seen. No dense spiculated masses or suspicious microcalcifications are identified. No architectural distortion is identified. There is no skin thickening or retraction. There has been no significant change since the prior study. BI/SCRN MAMM (CAD)W/CORRIE BILAT IMPRESSION: No mammographic signs of malignancy. Routine yearly mammograms recommended. ASSESSMENT CATEGORY: BIRADS Category 1: Negative. A letter regarding these results will be sent to the patient by the facility within 30 days. FOLLOW UP RECOMMENDATION: Yearly follow up mammogram recommended. (A) Approximately 10% of breast cancers are not detected by mammography. A normal mammogram should not delay biopsy of a clinically suspicious abnormality. Electronically Signed: Parish Alvarado MD at 19:28 EST ,
== END | disposition home or self-care (01) ==
LOC: OPBD 14:23
PROVIDERS: PCP Internal Medicine; Referring Provider Internal Medicine; Visit Provider Internal Medicine
DX: Z13.820 Encounter for screening for osteoporosis (principal); Z78.0 Asymptomatic menopausal state; Z12.31 Encounter for screening mammogram for malignant neoplasm of breast
CPT/HCPCS: 77063; 77067; 77080

== ENCOUNTER → 2024-10-24 | Outpatient (CLI) | payer MEDICARE, OTHER, SELFPAY ==
[2024-10-24 12:52] LABS: AST(SGOT) 28 U/L (15-37); Alanine Aminotransfer ALT/SGPT 32 U/L (13-56); Albumin, Serum 3.4 g/dL (3.2-5.0); Alkaline Phosphatase 114 U/L (45-117); Anion Gap 2 (5-15); BUN 16 mg/dL (7-18); BUN/Creat Ratio 25.4 RATIO (10-20); Calcium,Total 9.3 mg/dL (8.5-10.1); Chloride 109 mmol/L (98-107); Creatinine, Serum 0.63 mg/dL (0.55-1.02); EST Glomerular Filtration Rate 99 mL/min (>60); Est Glom Filt Rate - Afr Amer 120 mL/min (>60); Globulin 3.5 g/dL (2.2-4.2); Glucose 93 mg/dL (74-106); Potassium 3.9 mmol/L (3.5-5.1); Protein, Total 6.9 g/dL (6.4-8.2); Sodium Level 140 mmol/L (136-145)
== END | disposition home or self-care (01) ==
LOC: MTLAB 10:04
PROVIDERS: PCP Internal Medicine; Referring Provider Internal Medicine; Visit Provider Internal Medicine
DX: R74.8 Abnormal levels of other serum enzymes (principal)
CPT/HCPCS: 36415; 80053

== ENCOUNTER 2025-03-09 13:21 | Emergency (ER) | payer MEDICARE, OTHER, SELFPAY ==
[2025-03-09] VITALS (10 sets, daily range): BP systolic 122–143; BP diastolic 67–79; PULSE 65–86; RESP 12–23; TEMP 37–37.1; O2SAT 94–99
--- NOTE | 2025-03-09 15:06 | EX.ED.VIS.EY ---
HPI History of Present Illness Chief Complaint: Eye Problem [facility] Medical History (Updated 12/05/24 @ 12:[address] Dayanna Vásquez MD) Osteoporosis Elevated liver enzymes Wears glasses Heartburn Non-smoker History of stress test Colon cancer screening Hypertension Hyperlipidemia Anaphylactic reaction to bee sting Health care maintenance Elevated blood pressure reading Osteopenia GERD (gastroesophageal reflux disease) Kidney stones Chronic headaches Glaucoma Home Medications ?Medication ?Instructions ?Recorded ?Last Taken ?Type aspirin 81 mg chewable tablet 162 mg PO DAILY@0800 Heart 02/05/14 01/24/18 History vitamin E 670 mg (1,000 unit) 400 unit PO DAILY vitamin 01/24/18 01/24/18 History capsule latanoprost 0.005 % eye drops 1 drp ophthalmic (eye) QPM 04/18/18 Unknown History epinephrine 0.3 mg/0.3 mL 0.3 mg (0.3 mL) IM Q10-15M PRN 07/19/21 Unknown Rx injection, auto-injector (EpiPen) anaphylaxis #2 ea calcium 600 mg (as 1 tab PO BID 08/10/22 Unknown History carbonate)-vitamin D3 20 mcg (800 unit) tablet cholecalciferol (vitamin D3) 10 10 mcg PO DAILY 08/10/22 Unknown History mcg (400 unit) capsule cholecalciferol (vitamin D3) 25 25 mcg PO DAILY 08/10/22 Unknown History mcg (1,000 unit) capsule scopolamine base 1 mg over 3 days 1 patch transdermal Q3D PRN motion 03/20/24 Unknown Rx transdermal patch sickness #4 ea methylprednisolone 4 mg tablets in See Rx Instructions PO PER PKG DIR 09/11/24 Unknown History a dose pack (Medrol (Charlie)) PRN multivitamin (Daily Multi-Vitamin 1 tab PO QDAY 09/11/24 Unknown History tablet) denosumab 60 mg/mL subcutaneous 60 mg subcut [id number] #1 mL 12/05/24 Unknown Rx syringe (Prolia) Allergy/AdvReac Type Severity Reaction Status Date / Time bee venom protein (honey bee) Allergy Severe Shortness Verified 03/09/25 13:23 of breath diphenhydramine HCl (From Allergy Rash Verified 03/09/25 13:23 Benadryl) Family History Mother Breast cancer Myocardial infarction Father Myocardial infarction Heart disease CVA (cerebral vascular accident) Brother Prostate cancer Surgical History History of eye surgery Hx of colonoscopy History of surgical procedure on eye proper using laser History of hysterectomy History of appendectomy History of Social History adopted: No household members: spouse number of children: 2 current occupational status: retired pets and animals: No sexually active: Yes Smoking Status: Never smoker alcohol intake: never substance use type: does not use caffeine: No eating out: rarely or never what type of physical activity do you participate in: walking frequency: 5-6 times per week do you feel safe at home: Yes EXAM Physical Exam Const Vital Signs: 03/09/25 13:23 03/09/25 14:39 Temperature 98.6 F Temperature Source Oral Pulse Rate 78 79 Respiratory Rate 15 23 H Blood Pressure 139/67 H 143/79 H Blood Pressure Mean 91 100 Pulse Ox 97 99 Oxygen Delivery Method Room Air Room Air MDM MDM MDM Narrative Medical decision making narrative: HISTORY OF PRESENT ILLNESS: Chief complaint: Headache, transient visual disturbance 74-year-old female history of carotid artery stenosis, GERD, hypertension, hyperlipidemia, chronic headaches presents with headache and visual changes. Notes he has a history of ocular migraines. She notes at approximately 1215 she started having visual change in the right eye. She notes when looking straight ahead, I could not see what was going on around me like I usually could. She notes this is improved since onset. She also endorses headache and sensitivity to light. Denies trauma. Notes symptoms have since resolved. She denies headache. REVIEW OF SYSTEMS: Pertinent positives: Headache, visual disturbance Pertinent negatives: Chest pain, shortness of breath, vomiting, nausea, bleeding diathesis, neck pain PHYSICAL EXAM: Nursing triage notes reviewed, Vital signs reviewed Constitutional: please see mdm HENT: MMM Eyes: Pupils equal round and reactive to light, Extraocular muscles intact, grossly intact visual acuity, intact extraocular muscles, intact visual suarez. Neck: No stridor, no JVD, full neck ROM Lungs: Clear to auscultation, No wheezing or rales. No increased work of breathing, no conversational dyspnea, no accessory muscle use, no nasal flaring. No respiratory distress noted Heart: Regular rate and rhythm, No murmurs, No rubs and No gallops, 2+ distal pulses (radial, femoral, posterior tibial) in all extremities Abdomen: Soft, there is no tenderness, rigidity, rebound or guarding, no obvious peritoneal signs, no palpable pulsatile abdominal masses, no auscultated abdominal bruit : No CVAT Extremities: No edema Neuro: Alert and oriented x3, neuro exam at baseline, cranial nerves II through XII are intact. No pain with extraocular muscle movement. There is negative test of skew. 5 of 5 strength in upper and lower extremities in flexion extension. Intact sensation to light touch in upper and lower extremity dermatomes. No truncal or extremity ataxia. No dysdiadochokinesia. Normal gait. 2+ reflexes in upper and lower extremities. No meningeal signs. Negative Babinski. NIH of 0. Skin: No rash or lesions noted MEDICAL DECISION MAKING: Chief Complaint: please see HPI External records reviewed: Reviewed prior imaging studies: Reviewed CTA of the head and neck from April [address] head and neck with contrast no obvious LVO or dissection or other abnormalities were noted during the study Factors affecting care: As per HPI Social determinants of health: Denies drug use History obtained from others: none Consults: none [facility] Narrative: The patient was initially hemodynamically stable, afebrile and nontoxic-appearing. Initial exam showed no acute focal neurologic deficits. Visual suarez, visual acuity and extraocular muscles were intact. I considered the following differential diagnosis: Ocular migraine, ICH, mass, LVO I obtained a broad lab and imaging workup to further elucidate etiology of the patient's complaints. ALL IMAGES (IF OBTAINED) HAVE BEEN PERSONALLY REVIEWED AND INTERPRETED BY MYSELF. EKG with normal sinus rhythm rate of 63, left axis deviation, prolonged CA interval at 206, first-degree AV block no STEMI, no arrhythmia, no CBC without leukocytosis, severe anemia, no thrombocytopenia. CT scan of the brain shows no evidence of acute intracranial abnormality CMP without evidence of acute kidney injury, significant electrolyte abnormality, anion gap to suggest end organ hypo-perfusion, no evidence of metabolic acidosis with a normal bicarbonate, no evidence of hepatobiliary obstructive pathology. Repeat neurologic exam intact. Patient is asymptomatic at this time. Discussed risk and benefits of discharge versus admission for further workup for possible TIA. Patient was alert and orient x 3 had capacity to make her own independent medical decisions and chose against TIA workup at this time and chose to be discharged home with close outpatient follow-up. She was given neurology and ophthalmology follow-up. The patient and/or family, caregivers express understanding. The patient and/or family, caregivers agrees with the plan. Shared decision making: I will have a discussion with the patient and or visitors regarding risk/benefits of further testing or admission. They will be made aware of of the risk/benefits inherent in this decision they will be given the opportunity to voice understanding. Total critical care time today provided was at least 0 minutes. This excludes separately billable procedures. Critical care time (if documented) is secondary to the patient having high probability of clinically significant/life threatening deterioration in the patient's condition which required my urgent intervention. Impression: 1. Transient visual disturbance 2. Acute headache 3. History of migraine Dispo: Discharge home This note was generated with [employer] dictation software. It may contain incorrect words, spelling, and punctuation that were not noted in review of the chart prior to signing. Discharge Plan Triage Chief Complaint: Eye Problem ED Provider: Joseph Bal Dx/Rx/DC Orders Prescriptions: No Action latanoprost 0.005 % drops 1 drp OPHTHALMIC QPM epinephrine [EpiPen] 0.3 mg/0.3 mL auto-injector 0.3 mg IM Q10-15M PRN (Reason: anaphylaxis) Qty: 2 2RF Rx Instructions: until response calcium carbonate-vitamin D3 600 mg-20 mcg (800 unit) tablet 1 tab PO BID cholecalciferol (vitamin D3) 25 mcg (1,000 unit) capsule 25 mcg PO DAILY cholecalciferol (vitamin D3) 10 mcg (400 unit) capsule 10 mcg PO DAILY multivitamin [Daily Multi-Vitamin] Tablet 1 tab PO QDAY methylprednisolone [Medrol (Charlie)] 4 mg tablets,dose pack See Rx Instructions PO PER PKG DIR PRN Rx Instructions: orally per package directions PRN; PO PER PKG DIR Prolia 60 mg/mL syringe 60 mg subcut [id number] Qty: 1 0RF aspirin 81 MG tablet,chewable 162 mg PO DAILY@0800 vitamin E 1,000 UNIT capsule 400 unit PO DAILY scopolamine base 1 mg over 3 days patch 3 day 1 patch transdermal Q3D PRN (Reason: motion sickness) Qty: 4 1RF Primary Care Provider: Dayanna Vásquez Referrals: Mark Jeter MD [Med Staff - Active Staff] - Dayanna Vásquez MD [Primary Care Provider] - Sai Leavitt MD [Non-Staff -Ordering Privileges] - Print Language: Iranian
--- NOTE | 2025-03-09 15:23 | CT_ITS ---
PROCEDURE: BRAIN/HEAD WITHOUT CONTRAST 03/09/2025 REASON FOR EXAM: TRANSIENT VISUAL DISTURBANCE, HEAD TECHNIQUE: Head CT without intravenous contrast. Coronal and Sagittal reconstruction series were provided. One or more dose reduction techniques were used (e.g., Automated exposure control, adjustment of the mA and/or kV according to patient size, use of iterative reconstruction technique. COMPARISON: CTA head and neck 05/12/2022 FINDINGS: * ACUTE: No acute infarct or hemorrhage. No mass effect or herniation. * BRAIN PARENCHYMA: Signal intensities are within normal limits for age. * VENTRICLES/EXTRA-AXIAL SPACES: No hydrocephalus or extra-axial fluid collections. * EXTRACRANIAL STRUCTURES: Visualized osseous structures are normal. Soft tissues are normal. CT/Brain/Head without Contrast IMPRESSION: No acute intracranial abnormality. Reading [facility]
--- NOTE | 2025-03-09 15:24 | EKG12_ITS ---
Test Reason : GENERAL Blood Pressure : */* mmHG Vent. Rate : 63 BPM Atrial Rate : 63 BPM P-R Int : 206 ms QRS Dur : 86 ms QT Int : 396 ms P-R-T Axes : 45 -19 13 degrees QTcB Int : 405 ms Normal sinus rhythm with sinus arrhythmia Normal ECG Confirmed by Cornell Mckeon ([id number]), supervising editor trailer YAA KANG ([id number]) on 03/10/2025 9:19:13 AM Referred By: Confirmed By: Cornell Mckeon
[2025-03-09 15:53] LABS: Hematocrit 40.6 % (37-47); Hemoglobin 13.8 g/dL (12.0-15.0); Mean Corpuscular Hgb 31.5 pg (27.0-32.0); Mean Corpuscular Volume 92.7 fL (81-99); Mean Platelet Vol. 9.6 fl (6.2-12.0); Platelet Count 213 K/mm3 (150-450); RBC Distribution Width CV 12.8 % (11.6-14.6); RBC Distribution Width SD 43.9 fl (35.1-43.9); Red Blood Count 4.38 M/mm3 (4.2-5.4)
--- NOTE | 2025-03-09 16:25 | RAD_ITS ---
EXAM: XR Chest, 1 View CLINICAL INDICATION: PALPITATIONS TECHNIQUE: Frontal view of the chest. COMPARISON: No relevant prior studies available. FINDINGS: LUNGS AND PLEURAL SPACES: Unremarkable. No consolidation. No pneumothorax. HEART: Unremarkable. No cardiomegaly. MEDIASTINUM: Unremarkable. Normal mediastinal contour. BONES/JOINTS: Unremarkable. No acute fracture. RAD/Chest 1 View (Portable) IMPRESSION: No acute cardiopulmonary process. Reading Location: [id number]
[2025-03-09 16:28] LABS: ALB/GLOB Ratio 1.4 RATIO (0.9-2.4); AST(SGOT) 31 U/L (<=31); Alanine Aminotransfer ALT/SGPT 26 U/L (<=34); Albumin, Serum 3.9 g/dL (3.4-4.8); Alkaline Phosphatase 111 U/L (35-104); Anion Gap 9 (5-15); BUN 19 mg/dL (4-19); BUN/Creat Ratio 24.6 RATIO (10-20); Calcium,Total 9.8 mg/dL (7.6-11.0); Carbon Dioxide 25.9 mmol/L (21.0-32.0); Chloride 107 mmol/L (98-108); Creatinine, Serum 0.77 mg/dL (0.70-1.20); EST Glomerular Filtration Rate 82 (>60); Globulin 2.8 g/dL (2.2-4.2); Glucose 104 mg/dL (70-99); Protein, Total 6.7 g/dL (5.9-8.4); Sodium Level 141 mmol/L (133-145)
== END 2025-03-09 21:40 | disposition home or self-care (01) ==
PROVIDERS: Emergency Provider Emergency Medicine; PCP Internal Medicine; Visit Provider Emergency Medicine
DX: H53.9 Unspecified visual disturbance (principal); I10 Essential (primary) hypertension; R51.9 Headache, unspecified; E78.5 Hyperlipidemia, unspecified; K21.9 Gastro-esophageal reflux disease without esophagitis
CPT/HCPCS: 70450; 71045; 80053; 85027; 93005; 99284; A4216

== ENCOUNTER → 2025-03-17 | Outpatient (CLI) | payer MEDICARE, OTHER, SELFPAY ==
--- NOTE | 2025-03-17 12:24 | MRI_ITS ---
EXAM: BRAIN W/WO CONTRAST CLINICAL HISTORY: OCCULAR MIGRAINE COMPARISON: March 09, 2025 CT. TECHNIQUE: Multiplanar, multisequence MR images of the brain were obtained without and with 13 cc IV Clariscan gadolinium contrast material with additional high-resolution images of the right and left orbit. FINDINGS: No intracranial hemorrhage, mass, mass effect, midline shift or pathologic extra- axial fluid collection. No hydrocephalus. There are scattered areas of increased T2 and FLAIR signal in the deep white matter with mild chronic ischemic change. No areas of restricted diffusion to suggest acute ischemia or infarction. No gradient signal blooming artifacts are identified. No cerebellar tonsillar ectopia. No sellar/suprasellar signal abnormalities. Orbits: The ocular globes and intraorbital soft tissues are symmetrically unremarkable. There is a normal appearance of the optic nerves and optic chiasm. There are no suspicious enhancing lesions. Paranasal sinuses are essentially clear. MRI/Brain W/WO Contrast IMPRESSION: There are scattered areas of increased T2 and FLAIR signal in the deep white ma tter with mild chronic ischemic change. Reading Location: [facility]
== END | disposition home or self-care (01) ==
LOC: OPMRI 12:23
PROVIDERS: PCP Internal Medicine; Referring Provider Internal Medicine; Visit Provider Internal Medicine
DX: G43.109 Migraine with aura, not intractable, without status migrainosus (principal); H53.9 Unspecified visual disturbance
CPT/HCPCS: 70553; A9575

== ENCOUNTER → 2025-03-26 | Outpatient (CLI) | payer MEDICARE, OTHER, SELFPAY | END | disposition home or self-care (01) | LOC: PSN 07:55 | PROVIDERS: PCP Internal Medicine; Referring Provider Internal Medicine; Visit Provider Internal Medicine | DX: I49.9 Cardiac arrhythmia, unspecified (principal) | CPT/HCPCS: 93225; 93226 ==